=== PATIENT | female | born 1955 | race Caucasian/White ===

== ENCOUNTER → 2016-04-13 | Outpatient (CLI) | payer BC, OTHER ==
[~2016-04-13] MED LIST: BACT800T5 PO; CLAR10CA3 PO; LEVO150T7 PO; LISI-538 PO; LORT5TAB PO; POTA99TA PO; VITA200015 PO; antibiotic; iron OR; multivitamin OR
--- NOTE | 2016-04-14 10:24 | RADONC ---
RADIATION ONCOLOGY FOLLOWUP NOTE: DATE: 04/13/2016 DIAGNOSIS: Left breast cancer. STAGE: IIIB, [id number] ECOG PERFORMANCE STATUS: 0 Ms. Colvin is a very pleasant 60-year-old white female with the diagnosis of a stage III B, [id number] inflammatory breast carcinoma who is presenting to us today for routine followup visit 8 months post completion of external beam radiation therapy. The patient presents today reporting that she is doing quite well with no complaints at this time related to her radiation therapy or disease. She has no chest wall pain or bone pain. REVIEW OF SYSTEMS: The patient's review of systems is noncontributory. Denies nausea, vomiting, fevers, chills, night sweats, diplopia, headaches, anxiety or depression, anorexia, weight loss, visual disturbances, chest pain, urinary or bowel difficulties, bone pain, or neurological problems. PHYSICAL EXAMINATION: The patient is a well-developed, well-nourished female in no acute distress. HEENT exam is normocephalic, atraumatic. Extraocular movements are intact. There is no palpable cervical, supraclavicular, infraclavicular, axillary, or inguinal lymphadenopathy present. Lungs are clear to auscultation and percussion. Heart has a regular rate and rhythm. Abdomen is benign with no hepatosplenomegaly, masses, or tenderness. Breast examination: The patient's bilateral chest wall show a well healed surgical scar is present from her bilateral mastectomies, but no evidence of nodularity or recurrent disease. Skeletal examination reveals no tenderness to pressure or percussion of the bony skeleton. Extremities reveal no clubbing, cyanosis, or edema. Neurologic exam is grossly intact, as is the remainder of the physical examination. ASSESSMENT: The patient is clinically stable at this time and will be seen by us again in 6 months for further followup. She will also continue to be followed by her other physicians in the meantime. cc: Jessie Krause MD
== END ==
LOC: M ONCR 14:00
PROVIDERS: ATTEND Radiology Radiation Oncology
DX: C50.312 Malignant neoplasm of lower-inner quadrant of left female breast (principal)

== ENCOUNTER → 2016-04-15 | Outpatient (CLI) | payer BC, OTHER ==
[2016-04-15 09:34] LABS: ALBUMIN 3.9 GM/DL (3.2-5.2); ALBUMIN/GLOBULIN RATIO 1.05 (1.00-1.93); ALKALINE PHOSPHATASE 120 U/L (45-117); ALT/SGPT 55 U/L (12-78); ANION GAP 10 MEQ/L (8-16); AST/SGOT 26 U/L (15-37); BILIRUBIN,TOTAL 0.5 MG/DL (0.2-1.0); BLOOD UREA NITROGEN 13 MG/DL (7-18); CALCIUM LEVEL 9.4 MG/DL (8.8-10.2); CARBON DIOXIDE LEVEL 29 MEQ/L (21-32); CHLORIDE LEVEL 103 MEQ/L (98-107); CHOLESTEROL LEVEL 200 MG/DL (<200); CREATININE FOR GFR 0.83 MG/DL (0.55-1.02); GLOMERULAR FILTRATION RATE > 60.0 (>45); GLUCOSE, FASTING 154 MG/DL (80-110); POTASSIUM SERUM 4.5 MEQ/L (3.5-5.1); SODIUM LEVEL 142 MEQ/L (136-145); TOTAL PROTEIN 7.6 GM/DL (6.4-8.2); TRIGLYCERIDES LEVEL 206 MG/DL (<150)
== END ==
LOC: M LAB 08:11
PROVIDERS: ATTEND Physician Assistant
DX: Z13.1 Encounter for screening for diabetes mellitus (principal)

== ENCOUNTER → 2016-04-20 | Outpatient (CLI) | payer BC, OTHER ==
--- NOTE | 2016-04-21 06:36 | ECHO ---
DATE OF PROCEDURE: 04/20/2016 DATE OF : 1955 AGE: 60 REASON FOR ECHOCARDIOGRAM: Shortness of breath. History of breast cancer and status post chemotherapy. 2D MEASUREMENTS: IVS: 1.3 cm LV: 3.9 cm LVPW: 1.3 cm LA: 3.7 cm Aorta: 3.2 cm IVC: 2.1 cm DOPPLER MEASUREMENTS: Peak velocity across the aortic valve: 0.82 m/s Peak velocity across the LVOT: 0.55 m/s Mitral E: 1.0 Mitral A: 0.52 Ratio 2.0 2D COMMENTS: 1. Technically limited study due to poor acoustic window secondary to lung interference. 2. The left ventricular size is normal with mildly increased left ventricular wall thickness and a normal global left ventricular systolic function noted in limited views. The estimated global left ventricular systolic ejection fraction is about 60%. 3. Normal left atrium. Normal right atrium and right ventricle. 4. The atrial septum appeared to be normal without evidence of defect or shunt. 5. Normal aortic root. 6. No pericardial effusion noted in limited views. 7. The aortic valve, mitral valve and tricuspid valve appeared to be normal. The proximal pulmonary artery branches were not well visualized. 8. The inferior vena cava was mildly enlarged, central venous pressure mildly elevated. DOPPLER: Once trace mild regurgitation detected. IMPRESSION: 1. Technically limited study due to poor acoustic window. 2. Probably normal global left ventricular systolic function. Not mentioned above, abnormal relaxation pattern was noted across the mitral valve annulus consistent with pseudonormal pattern. Left ventricular and diastolic pressure mildly elevated. 3. There are findings consistent with elevated central venous pressure, the inferior vena cava was mildly enlarged. 4. Patient during the test was in mild sinus tachycardia, had a heart that varied between 100-110 beats per minute. 5. This was compared to the last echocardiogram on 12/19/2014. That study was good quality and left ventricular systolic function was essentially normal. There were no echocardiographic findings that would explain sinus tachycardia, this may need to be investigated and if needed, a MUGE can be ordered in order to reassess the LVEF. Please do not hesitate to call if any question.
== END ==
LOC: M CARPUL 12:20
PROVIDERS: ATTEND Internal Medicine Medical Oncology
DX: R06.02 Shortness of breath (principal); C50.919 Malignant neoplasm of unspecified site of unspecified female breast

== ENCOUNTER → 2016-04-25 | Outpatient (CLI) | payer BC ==
[~2016-04-25] MED LIST changes: +LIDOCAINE W/EPINEPHRINE 1% 20ML VIAL As Ordered ONE; +SODIUM BICARBONATE 8.4% INJ 50MEQ 50 ML VIAL As Ordered ONE
--- NOTE | 2016-04-25 14:19 | REPKIM ---
CLINICAL HISTORY: Patient has a right IJ chest [id number]. The referring service has requested to remove the chest port because it is no longer needed. PROCEDURE PERFORMED: Chest Uhnang-f-mjva Removal INTERVENTIONALIST: Moni Guardado MD MEDICATIONS: Local Lidocaine EBL: less than 5 mL CONSENT: The risks, benefits and alternatives to the procedure were explained to the patient and informed written consent was obtained. PROCEDURE/FINDINGS: The patient was brought to the interventional radiology suite and was positioned supine on the table. Time out procedure was performed. The pre-procedure chest fluoroscopy showed the catheter is intact in a satisfactory course with its tip at the cavoatrial junction. The right upper chest was prepped and draped in the usual sterile fashion. Local anesthesia was administered to the overlying skin and surrounding deep tissue around the existing port. Then a skin incision was made. The port was bluntly dissected free from the surrounding soft tissues. The catheter was removed, inspected and confirmed to be removed in its entirety. The deep tissue was closed with interrupted 2-0 Vicryl suture. The skin incision closed with running subcutaneous 4-0 Vicryl suture and steristrips. The patient tolerated the procedure well with no immediate complications. This procedure was performed with fluoroscopic guidance. Dr. Guardado was present. IMPRESSION: Successful chest pihigl-y-ksnq removal as discussed above. cc: Jessie Krause MD [facility] HEALTH SERVICESLetty
== END | disposition home or self-care (01) ==
LOC: M IRPRO 09:15
PROVIDERS: ATTEND Internal Medicine Medical Oncology
DX: Z45.2 Encounter for adjustment and management of vascular access device (principal); C50.919 Malignant neoplasm of unspecified site of unspecified female breast

== ENCOUNTER → 2016-05-11 | Outpatient (CLI) | payer BC, OTHER ==
[~2016-05-11] VITALS: Ht 170.2 cm; Wt 106.2 kg
[~2016-05-11] MED LIST changes: +ASPI1TAB PO; +EXEM25TA PO; +GABA-279 PO; +HYDR10T PO; +LIDOCAINE 2% INJ 100 MG/5 ML SDV (FOR ANES.) As Ordered ONE; -LIDOCAINE W/EPINEPHRINE 1% 20ML VIAL As Ordered ONE; +LISI-542 PO; +NS 1,000 ML IV SCH; +PROPOFOL 200 MG/20 ML VIAL As Ordered ONE; -SODIUM BICARBONATE 8.4% INJ 50MEQ 50 ML VIAL As Ordered ONE; +ZYRT10CA PO
--- NOTE | 2016-05-11 09:03 | ROOR ---
Patient Name: Rupali Colvin Procedure Date: 05/11/2016 8:34 AM Date of : 1955 Age: 61 Room: [facility] Gender: Female Note Status: Finalized Procedure: Colonoscopy to Cecum Indications: High risk colon cancer surveillance: Personal history of colonic polyps, Last colonoscopy: 2013 Providers: Geoff Rosales MD Referring MD: Antonia OLIVAREZ DO Requesting Provider: Medicines: Monitored Anesthesia Care Complications: No immediate complications. Procedure: Pre-Anesthesia Assessment: - The heart rate, respiratory rate, oxygen saturations, blood pressure, adequacy of pulmonary ventilation, and response to care were monitored throughout the procedure. The Colonoscope was introduced through the anus and advanced to the cecum, identified by appendiceal orifice and ileocecal valve. The colonoscopy was performed without difficulty. The patient tolerated the procedure well. The quality of the bowel preparation was fair. Findings: The perianal and digital rectal examinations were normal. Non-bleeding internal hemorrhoids were found during retroflexion. The hemorrhoids were small and Grade I (internal hemorrhoids that do not prolapse). No other significant abnormalities were identified in a careful examination of the remainder of the colon. The exam was otherwise without abnormality on direct and retroflexion views. Impression: - Preparation of the colon was fair. - Non-bleeding internal hemorrhoids. - The examination was otherwise normal on direct and retroflexion views. - No specimens collected. - The exam was otherwise normal to the cecum. Recommendation: - Patient has a contact number available for emergencies. The signs and symptoms of potential delayed complications were discussed with the patient. Return to normal activities tomorrow. Written discharge instructions were provided to the patient. - High fiber diet. - Discharge patient to home. - Continue present medications. - Repeat colonoscopy in 5 years for surveillance. - Return to referring physician. - The findings and recommendations were discussed with the patient's family. Geoff Rosales MD Geoff Rosales MD 05/11/2016 9:03:22 AM This report has been signed electronically. Number of Addenda: 0 Note Initiated On: 05/11/2016 8:34 AM Estimated Blood Loss: Estimated blood loss: none.
[2016-05-11 09:20] VITALS: BP 137/69
== END | disposition home or self-care (01) ==
LOC: M OPP 07:29
PROVIDERS: ATTEND Internal Medicine Gastroenterology
DX: Z12.11 Encounter for screening for malignant neoplasm of colon (principal); Z86.010 Personal history of colon polyps; K64.0 First degree hemorrhoids; K82.9 Disease of gallbladder, unspecified; E03.9 Hypothyroidism, unspecified; E11.9 Type 2 diabetes mellitus without complications; I10 Essential (primary) hypertension; G47.30 Sleep apnea, unspecified; Z88.0 Allergy status to penicillin; Z88.2 Allergy status to sulfonamides; Z79.899 Other long term (current) drug therapy; Z79.82 Long term (current) use of aspirin
CPT/HCPCS: 99156; 99157; G0105

== ENCOUNTER → 2016-07-18 | Outpatient (CLI) | payer BC, OTHER ==
[~2016-07-18] MED LIST changes: -LIDOCAINE 2% INJ 100 MG/5 ML SDV (FOR ANES.) As Ordered ONE; -NS 1,000 ML IV SCH; -PROPOFOL 200 MG/20 ML VIAL As Ordered ONE
[2016-07-18 09:35] LABS: ALBUMIN 3.9 GM/DL (3.2-5.2); ALBUMIN/GLOBULIN RATIO 0.95 (1.00-1.93); ALKALINE PHOSPHATASE 122 U/L (45-117); ALT/SGPT 39 U/L (12-78); ANION GAP 7 MEQ/L (8-16); AST/SGOT 18 U/L (15-37); BILIRUBIN,TOTAL 0.5 MG/DL (0.2-1.0); BLOOD UREA NITROGEN 10 MG/DL (7-18); CALCIUM LEVEL 8.9 MG/DL (8.8-10.2); CARBON DIOXIDE LEVEL 29 MEQ/L (21-32); CHLORIDE LEVEL 102 MEQ/L (98-107); CREATININE FOR GFR 0.93 MG/DL (0.55-1.02); FREE T4 1.17 NG/DL (0.76-1.46); GLOMERULAR FILTRATION RATE > 60.0 (>45); GLUCOSE, FASTING 151 MG/DL (80-110); POTASSIUM SERUM 4.1 MEQ/L (3.5-5.1); SODIUM LEVEL 138 MEQ/L (136-145)
== END ==
LOC: M LAB 08:24
PROVIDERS: ATTEND Family Medicine
DX: E89.0 Postprocedural hypothyroidism (principal); E11.9 Type 2 diabetes mellitus without complications

== ENCOUNTER → 2016-10-05 | Outpatient (CLI) | payer BC, OTHER ==
[~2016-10-05] MED LIST changes: +HYDR-643 PO; -HYDR10T PO
--- NOTE | 2016-10-05 13:59 | RADONC ---
RADIATION ONCOLOGY FOLLOWUP NOTE DATE: 10/05/2016 CHART NUMBER: [id number] DIAGNOSIS: Left breast cancer. STAGE: IIIB, [id number]. ECOG PERFORMANCE STATUS: 0. FOLLOWUP NOTE: Ms. Colvin is a very pleasant plus 61-year-old white female with the diagnosis of a stage IIIB, [id number] inflammatory breast carcinoma who is presenting to us today for routine followup visit 1 year and 2 months post completion of external beam radiation therapy. The patient presents today reporting that she is doing quite well with no complaints at this time related to her radiation therapy or disease. She has no breast or bone pain. The patient's review of systems is noncontributory. She denies nausea, vomiting, fevers, chills, night sweats, diplopia, headaches, anxiety or depression, anorexia, weight loss, visual disturbances, chest pain, urinary or bowel difficulties, bone pain, or neurological problems. PHYSICAL EXAMINATION: The patient is a well-developed, well-nourished, female in no acute distress. HEENT exam is normocephalic, atraumatic. Extraocular movements are intact. There is no palpable cervical, supraclavicular, infraclavicular, axillary, or inguinal lymphadenopathy present. Lungs are clear to auscultation and percussion. Heart has a regular rate and rhythm. Abdomen is benign with no hepatosplenomegaly, masses, or tenderness. Chest wall examination reveals bilateral mastectomy scars which are well healed. There is no evidence of nodularity, ulceration, residual, or recurrent disease. Skeletal examination reveals no tenderness to pressure or percussion of the bony skeleton. Extremities reveal no clubbing, cyanosis, or edema. Neurologic exam is grossly intact, as is the remainder of the physical examination. ASSESSMENT: The patient is clinically needy at this time and will be seen by us again in 6 months for further followup. She will also continue to be followed by her other physicians as well. cc: Jessie Krause MD, FACP Antonia Sharp DO
== END ==
LOC: M ONCR 12:57
PROVIDERS: ATTEND Radiology Radiation Oncology
DX: C50.312 Malignant neoplasm of lower-inner quadrant of left female breast (principal)

== ENCOUNTER → 2016-10-20 | Outpatient (CLI) | payer BC, OTHER ==
[2016-10-20 08:25] LABS: ALBUMIN 4.1 GM/DL (3.2-5.2); ALBUMIN/GLOBULIN RATIO 1.03 (1.00-1.93); ALKALINE PHOSPHATASE 110 U/L (45-117); ALT/SGPT 33 U/L (12-78); ANION GAP 11 MEQ/L (8-16); AST/SGOT 13 U/L (15-37); BILIRUBIN,TOTAL 0.6 MG/DL (0.2-1.0); BLOOD UREA NITROGEN 12 MG/DL (7-18); CALCIUM LEVEL 10.2 MG/DL (8.8-10.2); CARBON DIOXIDE LEVEL 25 MEQ/L (21-32); CHLORIDE LEVEL 104 MEQ/L (98-107); CHOLESTEROL LEVEL 99 MG/DL (<200); CREATININE FOR GFR 0.86 MG/DL (0.55-1.02); GLOMERULAR FILTRATION RATE > 60.0 (>45); GLUCOSE, FASTING 147 MG/DL (80-110); POTASSIUM SERUM 4.3 MEQ/L (3.5-5.1); SODIUM LEVEL 140 MEQ/L (136-145); TOTAL PROTEIN 8.1 GM/DL (6.4-8.2); TRIGLYCERIDES LEVEL 127 MG/DL (<150)
== END ==
LOC: M LAB 06:58
PROVIDERS: ATTEND Family Medicine
DX: E78.00 Pure hypercholesterolemia, unspecified (principal); E11.9 Type 2 diabetes mellitus without complications; E89.0 Postprocedural hypothyroidism

== ENCOUNTER → 2016-12-19 | Outpatient (CLI) | payer BC, OTHER ==
--- NOTE | 2016-12-19 13:47 | REP ---
Whole body radionuclide bone scan: Whole-body scanning is performed. Additionally oblique views of the ribs and pelvis are performed and lateral views of the calvarium are performed. There is a degenerative pattern of uptake in the shoulders. No rib or spine. Uptake is identified. No pelvic uptake is identified. There is uptake in the knees bilaterally, likely degenerative. However, correlation with plain films might be considered. There is a degenerative pattern of uptake in the ankles and feet bilaterally. Impression: There is uptake in the joints of the shoulders, knees, ankles and feet. This is likely degenerative uptake. The uptake pattern is otherwise unremarkable. The study is performed with 21.9 mCi of technetium 99m MDP. Signed by Diony Neumann MD 12/19/2016 01:38 P
== END ==
LOC: M RAD 09:27
PROVIDERS: ATTEND Internal Medicine Medical Oncology
DX: M25.511 Pain in right shoulder (principal); M25.512 Pain in left shoulder; C50.919 Malignant neoplasm of unspecified site of unspecified female breast
CPT/HCPCS: 78306; A9503

== ENCOUNTER 2017-01-19 12:19 | Outpatient (RCR) | payer BC, OTHER | END 2017-02-16 | LOC: M PT 12:19 | PROVIDERS: ATTEND Internal Medicine Medical Oncology | DX: Z51.89 Encounter for other specified aftercare (principal); I89.0 Lymphedema, not elsewhere classified; C50.919 Malignant neoplasm of unspecified site of unspecified female breast ==

== ENCOUNTER → 2017-03-29 | Outpatient (CLI) | payer BC, OTHER | LOC: M ONCR 13:22 | DX: Z08 Encounter for follow-up examination after completed treatment for malignant neoplasm (principal); Z85.3 Personal history of malignant neoplasm of breast; Z90.13 Acquired absence of bilateral breasts and nipples | CPT/HCPCS: G0463 ==

== ENCOUNTER → 2017-04-25 | Outpatient (CLI) | payer BC, OTHER, MEDICARE ==
[2017-04-25 09:13] LABS: ESTIMATED AVERAGE GLUCOSE 154 MG/DL (60-110)
[2017-04-25 09:22] LABS: ANION GAP 8 MEQ/L (8-16); BLOOD UREA NITROGEN 13 MG/DL (7-18); CALCIUM LEVEL 9.5 MG/DL (8.8-10.2); CARBON DIOXIDE LEVEL 28 MEQ/L (21-32); CHLORIDE LEVEL 103 MEQ/L (98-107); CREATININE FOR GFR 0.84 MG/DL (0.55-1.30); FREE T4 1.38 NG/DL (0.76-1.46); GLOMERULAR FILTRATION RATE > 60.0 (>45); GLUCOSE, FASTING 139 MG/DL (70-100); POTASSIUM SERUM 4.2 MEQ/L (3.5-5.1); SODIUM LEVEL 139 MEQ/L (136-145); THYROID STIMULATING HORMONE 0.417 uIU/ML (0.358-3.740)
== END ==
LOC: M LAB 08:10
DX: E11.9 Type 2 diabetes mellitus without complications (principal); E89.0 Postprocedural hypothyroidism
CPT/HCPCS: 84443

== ENCOUNTER → 2017-09-28 | Outpatient (CLI) | payer MEDICARE, BC, OTHER ==
[~2017-09-28] MED LIST changes: -ASPI1TAB PO; -BACT800T5 PO; -CLAR10CA3 PO; -EXEM25TA PO; -GABA-279 PO; -HYDR-643 PO; +ISOVUE-370 76% 100ML VIAL (Q9967) As Ordered; -LEVO150T7 PO; -LISI-538 PO; -LISI-542 PO; -LORT5TAB PO; -POTA99TA PO; -VITA200015 PO; -ZYRT10CA PO; -antibiotic; -iron OR; -multivitamin OR
== END ==
LOC: M RAD 13:17
DX: C50.312 Malignant neoplasm of lower-inner quadrant of left female breast (principal); R07.2 Precordial pain
CPT/HCPCS: Q9967

== ENCOUNTER 2017-10-25 10:13 | Day surgery (SDC) | payer MEDICARE, BC, OTHER ==
[~2017-10-25 10:13] MED LIST changes: +CYCLOPENTOLATE 2% OPHTH SOLN 2ML BTL OS; -ISOVUE-370 76% 100ML VIAL (Q9967) As Ordered; +LIDOCAINE 3.5 % 1ML OPHTH TOPICAL GEL OU; +OFLOXACIN 0.3 % (OCUFLOX) OPTH SOL 5ML OS; +PHENYLEPHRINE 2.5% OPHTH SOL 2ML OS; +PHENYLEPHRINE HCL 10 % OPHTH. SOL 5ML OS; +TROPICAMIDE 1% OPHTH SOLN 2ML OS
[2017-10-25 11:42] LABS: BEDSIDE GLUCOSE 152 MG/DL (80-115)
[2017-10-25] MEDS: POVIDONE-IODINE 5% OPHTH PREP SOL 30ML As Ordered ×2 (12:30)
[2017-10-25] MEDS: CEFUROXIME 1MG/0.1ML INTRACAMERAL INJ As Ordered ×2 (12:37)
[2017-10-25] MEDS: HEALON DUET (HEALON 10MG/ML 0.55ML & HEALON ENDOCOAT 30MG/ML 0.85ML) As Ordered ×2 (12:37)
[2017-10-25] MEDS: LIDOCAINE 1% SDV 5 ML VIAL As Ordered ×2 (12:37)
[2017-10-25] MEDS: BALANCED SALT IRRIGATION SOLUTION 500ML BAG (FOR OR EYE MACHINE) As Ordered ×2 (12:37)
[2017-10-25] MEDS ORDERED: fentaNYL 100 MCG/2 ML INJECTION (J3010) As Ordered ×2 (12:43)
[2017-10-25] MEDS ORDERED: MIDAZOLAM INJ 2 MG/2 ML VIAL (J2250) As Ordered ×2 (12:43)
[2017-10-25] MEDS: ACETYLCHOLINE OPHTH SOLN 1% 2ML (MIOCHOL-E) As Ordered ×2 (12:50)
== END 2017-10-25 13:38 | disposition home or self-care (01) ==
LOC: M SDC 10:13
DX: H25.12 Age-related nuclear cataract, left eye (principal); I10 Essential (primary) hypertension; E78.5 Hyperlipidemia, unspecified; E11.9 Type 2 diabetes mellitus without complications; Z88.0 Allergy status to penicillin; Z88.2 Allergy status to sulfonamides; E03.9 Hypothyroidism, unspecified; Z79.82 Long term (current) use of aspirin; Z79.899 Other long term (current) drug therapy
CPT/HCPCS: 66984

== ENCOUNTER → 2017-10-25 | Outpatient (CLI) | payer MEDICARE, BC, OTHER ==
[2017-10-25 10:46] LABS: ANION GAP 7 MEQ/L (8-16); BLOOD UREA NITROGEN 13 MG/DL (7-18); CALCIUM LEVEL 9.4 MG/DL (8.8-10.2); CARBON DIOXIDE LEVEL 29 MEQ/L (21-32); CHLORIDE LEVEL 106 MEQ/L (98-107); CREATININE FOR GFR 0.76 MG/DL (0.55-1.30); GLOMERULAR FILTRATION RATE > 60.0 (>45); GLUCOSE, FASTING 156 MG/DL (70-100); POTASSIUM SERUM 4.5 MEQ/L (3.5-5.1); SODIUM LEVEL 142 MEQ/L (136-145)
[2017-10-25 12:24] LABS: ESTIMATED AVERAGE GLUCOSE 143 MG/DL (60-110); HEMOGLOBIN A1c 6.6 %
== END ==
LOC: M LAB 09:31
DX: E11.9 Type 2 diabetes mellitus without complications (principal)

== ENCOUNTER 2017-11-01 07:52 | Day surgery (SDC) | payer MEDICARE, BC, OTHER ==
[2017-11-01] MEDS: CEFUROXIME 1MG/0.1ML INTRACAMERAL INJ As Ordered ×2 (07:05)
[~2017-11-01 07:52] MED LIST changes: +ACETAMINOPHEN 325 MG TAB PO; -CYCLOPENTOLATE 2% OPHTH SOLN 2ML BTL OS; -LIDOCAINE 3.5 % 1ML OPHTH TOPICAL GEL OU; -OFLOXACIN 0.3 % (OCUFLOX) OPTH SOL 5ML OS; -PHENYLEPHRINE 2.5% OPHTH SOL 2ML OS; +PHENYLEPHRINE HCL 10 % OPHTH. SOL 5ML OD; -PHENYLEPHRINE HCL 10 % OPHTH. SOL 5ML OS; +PROPARACAINE 0.5% OPHTH SOL 15ML OD; -TROPICAMIDE 1% OPHTH SOLN 2ML OS
[2017-11-01] MEDS ORDERED: TROPICAMIDE 1% OPHTH SOLN 2ML As Ordered ×2 (08:14)
[2017-11-01] MEDS ORDERED: PHENYLEPHRINE 2.5% OPHTH SOL 2ML As Ordered ×2 (08:14)
[2017-11-01] MEDS ORDERED: OFLOXACIN 0.3 % (OCUFLOX) OPTH SOL 5ML As Ordered ×2 (08:14)
[2017-11-01] MEDS ORDERED: CYCLOPENTOLATE 2% OPHTH SOLN 2ML BTL As Ordered ×2 (08:14)
[2017-11-01] MEDS: POVIDONE-IODINE 5% OPHTH PREP SOL 30ML As Ordered ×2 (08:24)
[2017-11-01] MEDS: PHENYLEPHRINE 2.5% OPHTH SOL 2ML OD ×2 (08:45)
[2017-11-01] MEDS: TROPICAMIDE 1% OPHTH SOLN 2ML OD ×2 (08:45)
[2017-11-01] MEDS: CYCLOPENTOLATE 2% OPHTH SOLN 2ML BTL OD ×2 (08:46)
[2017-11-01] MEDS: LIDOCAINE 3.5 % 1ML OPHTH TOPICAL GEL OU ×2 (08:46)
[2017-11-01] MEDS: OFLOXACIN 0.3 % (OCUFLOX) OPTH SOL 5ML OD ×2 (08:46)
[2017-11-01] MEDS ORDERED: MIDAZOLAM INJ 2 MG/2 ML VIAL (J2250) As Ordered ×2 (09:56)
[2017-11-01] MEDS ORDERED: fentaNYL 100 MCG/2 ML INJECTION (J3010) As Ordered ×2 (09:57)
[2017-11-01] MEDS: LIDOCAINE 1% SDV 5 ML VIAL As Ordered ×2 (10:29)
[2017-11-01] MEDS: HEALON DUET (HEALON 10MG/ML 0.55ML & HEALON ENDOCOAT 30MG/ML 0.85ML) As Ordered ×2 (10:31)
[2017-11-01] MEDS: BALANCED SALT IRRIGATION SOLUTION 500ML BAG (FOR OR EYE MACHINE) As Ordered ×2 (10:31)
[2017-11-01] MEDS: ACETYLCHOLINE OPHTH SOLN 1% 2ML (MIOCHOL-E) As Ordered ×2 (10:37)
[2017-11-01] MEDS: KETOROLAC 0.5% OPHTH SOLN OD ×2 (11:08)
[2017-11-01] MEDS ORDERED: TRIMETHOBENZAMIDE 300 MG CAP PO ×2 (11:15)
== END 2017-11-01 11:20 | disposition home or self-care (01) ==
LOC: M SDC 07:52
DX: H25.11 Age-related nuclear cataract, right eye (principal); E03.9 Hypothyroidism, unspecified; I10 Essential (primary) hypertension; E78.5 Hyperlipidemia, unspecified; Z88.0 Allergy status to penicillin; Z88.2 Allergy status to sulfonamides; Z85.3 Personal history of malignant neoplasm of breast; Z92.21 Personal history of antineoplastic chemotherapy; Z92.3 Personal history of irradiation; Z79.82 Long term (current) use of aspirin
CPT/HCPCS: 66984

== ENCOUNTER → 2017-12-27 | Outpatient (CLI) | payer MEDICARE, BC, OTHER | LOC: M ONCR 09:38 | DX: C50.912 Malignant neoplasm of unspecified site of left female breast (principal) | CPT/HCPCS: G0463 ==

== ENCOUNTER → 2018-01-23 | Outpatient (CLI) | payer MEDICARE, BC, OTHER ==
[2018-01-23 10:36] LABS: ALBUMIN 3.9 GM/DL (3.2-5.2); ALBUMIN/GLOBULIN RATIO 1.05 (1.00-1.93); ALKALINE PHOSPHATASE 106 U/L (45-117); ALT/SGPT 31 U/L (12-78); ANION GAP 9 MEQ/L (8-16); AST/SGOT 11 U/L (7-37); BILIRUBIN,TOTAL 0.4 MG/DL (0.2-1.0); BLOOD UREA NITROGEN 12 MG/DL (7-18); CALCIUM LEVEL 9.6 MG/DL (8.8-10.2); CARBON DIOXIDE LEVEL 27 MEQ/L (21-32); CHLORIDE LEVEL 104 MEQ/L (98-107); CHOLESTEROL LEVEL 115 MG/DL (<200); CHOLESTEROL RISK RATIO 2.555 (<5); FREE T4 1.41 NG/DL (0.76-1.46); GLOMERULAR FILTRATION RATE > 60.0 (>45); GLUCOSE, FASTING 164 MG/DL (70-100); HDL CHOLESTEROL 45 MG/DL (>40); LDL CHOLESTEROL 38 MG/DL (<100); NON-HDL-C 70 MG/DL; POTASSIUM SERUM 4.4 MEQ/L (3.5-5.1); SODIUM LEVEL 140 MEQ/L (136-145); THYROID STIMULATING HORMONE 0.652 uIU/ML (0.358-3.740); TOTAL PROTEIN 7.6 GM/DL (6.4-8.2); TRIGLYCERIDES LEVEL 161 MG/DL (<150)
[2018-01-23 10:43] LABS: ESTIMATED AVERAGE GLUCOSE 154 MG/DL (60-110)
== END ==
LOC: M LAB 08:49
DX: Z00.00 Encounter for general adult medical examination without abnormal findings (principal); E11.9 Type 2 diabetes mellitus without complications; E78.00 Pure hypercholesterolemia, unspecified
CPT/HCPCS: 84443

== ENCOUNTER → 2018-05-02 | Outpatient (CLI) | payer MEDICARE, BC, OTHER ==
[~2018-05-02] MED LIST changes: -ACETAMINOPHEN 325 MG TAB PO; +ANAS1TAB2 PO; +ASPI1TAB PO; +ATOR40TA75 PO; +BACT800T5 PO; +CALC500T49 PO; +CINN500T PO; +CLAR10CA3 PO; +EXEM25TA PO; +GABA-1171 PO; +HYDR-643 PO; +INVO100T PO; +LEVO137T2 PO; +LEVO150T7 PO; +LISI-538 PO; +LISI-542 PO; +LORT5TAB PO; +METF500T4 PO; +MULT1TAB10 PO; -PHENYLEPHRINE HCL 10 % OPHTH. SOL 5ML OD; +POTA99TA PO; -PROPARACAINE 0.5% OPHTH SOL 15ML OD; +VITA200015 PO; +ZOLO50TA PO; +ZYRT10CA PO; +antibiotic; +iron OR; +multivitamin OR
[2018-05-02 09:05] LABS: BASO # 0.1 10^3/uL (0.0-0.2); BASO % 1.4 % (0.0-1.0); EOS # 0.2 10^3/uL (0.0-0.50); EOS % 3.2 % (0.0-3.0); HEMATOCRIT 44.1 % (36.0-47.0); HEMOGLOBIN 14.8 g/dl (12.0-15.5); LYMPH # 1.4 10^3/uL (1.5-4.5); LYMPH % 25.1 % (24.0-44.0); MEAN CORPUSCULAR HEMOGLOBIN 29.6 pg (27.0-33.0); MEAN CORPUSCULAR HGB CONC 33.6 g/dl (32.0-36.5); MEAN CORPUSCULAR VOLUME 88.2 fl (80.0-96.0); MONO # 0.4 10^3/uL (0.0-0.8); MONO % 7.2 % (0.0-5.0); NEUTROPHILS # 3.5 10^3/uL (1.8-7.7); NEUTROPHILS % 62.9 % (36.0-66.0); PLATELET COUNT, AUTOMATED 181 10^3/uL (150-450); WHITE BLOOD COUNT 5.6 10^3/uL (4.0-10.0)
[2018-05-02 09:30] LABS: ALT/SGPT 30 U/L (12-78); BILIRUBIN,TOTAL 0.4 MG/DL (0.2-1.0); BLOOD UREA NITROGEN 15 MG/DL (7-18); CALCIUM LEVEL 9.2 MG/DL (8.8-10.2); CARBON DIOXIDE LEVEL 27 MEQ/L (21-32); CHLORIDE LEVEL 104 MEQ/L (98-107); CREATININE FOR GFR 0.77 MG/DL (0.55-1.30); GLOMERULAR FILTRATION RATE > 60.0 (>45); GLUCOSE, FASTING 140 MG/DL (70-100); POTASSIUM SERUM 4.6 MEQ/L (3.5-5.1); SODIUM LEVEL 139 MEQ/L (136-145); TOTAL PROTEIN 7.5 GM/DL (6.4-8.2)
[2018-05-02 09:41] LABS: CREATININE, URINE 49.4 MG/DL; MALB URINE SIEMENS < 5.0 MG/L; MAU/CREAT RATIO 10.1 MCG/MG (0.0-30.0)
[2018-05-02 09:52] LABS: TOTAL 25(OH) VITAMIN D 33.9 NG/ML (30.0-100.0)
[2018-05-02 09:53] LABS: HEMOGLOBIN A1c 7.1 %
== END ==
LOC: M LAB 08:14
PROVIDERS: ATTEND Family Medicine
DX: E11.9 Type 2 diabetes mellitus without complications (principal); Z85.3 Personal history of malignant neoplasm of breast

== ENCOUNTER → 2018-07-26 | Outpatient (CLI) | payer MEDICARE, BC, OTHER ==
[~2018-07-26] MED LIST changes: -ASPI1TAB PO; +ASPI81TA26 PO
[2018-07-26 10:38] LABS: BLOOD UREA NITROGEN 14 MG/DL (7-18); CALCIUM LEVEL 9.2 MG/DL (8.8-10.2); CARBON DIOXIDE LEVEL 28 MEQ/L (21-32); CHLORIDE LEVEL 104 MEQ/L (98-107); CHOLESTEROL LEVEL 118 MG/DL (<200); CHOLESTEROL RISK RATIO 2.458 (<5); CREATININE FOR GFR 0.79 MG/DL (0.55-1.30); FREE T4 1.28 NG/DL (0.76-1.46); GLOMERULAR FILTRATION RATE > 60.0 (>45); GLUCOSE, FASTING 142 MG/DL (70-100); HDL CHOLESTEROL 48 MG/DL (>40); LDL CHOLESTEROL 48 MG/DL (<100); NON-HDL-C 70 MG/DL; POTASSIUM SERUM 4.5 MEQ/L (3.5-5.1); SODIUM LEVEL 139 MEQ/L (136-145); TRIGLYCERIDES LEVEL 111 MG/DL (<150)
[2018-07-26 11:03] LABS: HEMOGLOBIN A1c 6.9 %
== END ==
LOC: M LAB 08:17
PROVIDERS: ATTEND Physician Assistant
DX: E11.9 Type 2 diabetes mellitus without complications (principal); E89.0 Postprocedural hypothyroidism

== ENCOUNTER → 2018-10-31 | Outpatient (CLI) | payer MEDICARE, BC, OTHER ==
[2018-10-31 08:38] LABS: BLOOD UREA NITROGEN 11 MG/DL (7-18); CALCIUM LEVEL 9.1 MG/DL (8.8-10.2); CARBON DIOXIDE LEVEL 27 MEQ/L (21-32); CHLORIDE LEVEL 103 MEQ/L (98-107); CHOLESTEROL LEVEL 114 MG/DL (<200); FREE T4 1.21 NG/DL (0.76-1.46); GLOMERULAR FILTRATION RATE > 60.0 (>45); GLUCOSE, FASTING 148 MG/DL (70-100); HDL CHOLESTEROL 50 MG/DL (>40); LDL CHOLESTEROL 39 MG/DL (<100); NON-HDL-C 64 MG/DL; POTASSIUM SERUM 4.6 MEQ/L (3.5-5.1); SODIUM LEVEL 140 MEQ/L (136-145); TRIGLYCERIDES LEVEL 123 MG/DL (<150)
[2018-10-31 08:47] LABS: HEMOGLOBIN A1c 7.6 %
== END ==
LOC: M LAB 07:26
PROVIDERS: ATTEND Physician Assistant
DX: E11.9 Type 2 diabetes mellitus without complications (principal)

== ENCOUNTER → 2019-02-12 | Outpatient (CLI) | payer MEDICARE, BC, OTHER ==
[~2019-02-12] MED LIST changes: +BENA25CA4 PO; +GLIM2TAB2 PO; +METF-791 PO; -METF500T4 PO
[2019-02-12 08:53] LABS: HEMOGLOBIN A1c 6.3 %
[2019-02-12 09:00] LABS: BLOOD UREA NITROGEN 15 MG/DL (7-18); CALCIUM LEVEL 9.1 MG/DL (8.8-10.2); CARBON DIOXIDE LEVEL 26 MEQ/L (21-32); CHLORIDE LEVEL 107 MEQ/L (98-107); CREATININE FOR GFR 0.86 MG/DL (0.55-1.30); GLOMERULAR FILTRATION RATE > 60.0 (>45); GLUCOSE, FASTING 118 MG/DL (70-100); POTASSIUM SERUM 4.2 MEQ/L (3.5-5.1); SODIUM LEVEL 139 MEQ/L (136-145)
== END ==
LOC: M LAB 08:07
PROVIDERS: ATTEND Physician Assistant
DX: E11.9 Type 2 diabetes mellitus without complications (principal)

== ENCOUNTER → 2019-05-20 | Outpatient (CLI) | payer MEDICARE, BC, OTHER ==
[~2019-05-20] MED LIST changes: +D3400CAP PO; -GLIM2TAB2 PO; +GLIM2TAB4 PO; +MULTCAP PO; +SM F10002 PO
[2019-05-20 09:08] LABS: HEMOGLOBIN 13.6 g/dl (12.0-15.5); MEAN CORPUSCULAR HEMOGLOBIN 29.3 pg (27.0-33.0); MEAN CORPUSCULAR HGB CONC 33.2 g/dl (32.0-36.5); MEAN CORPUSCULAR VOLUME 88.4 fl (80.0-96.0); PLATELET COUNT, AUTOMATED 207 10^3/uL (150-450); RED BLOOD COUNT 4.64 10^6/uL (4.00-5.40); WHITE BLOOD COUNT 5.9 10^3/uL (4.0-10.0)
[2019-05-20 09:12] LABS: INR 1.1; PROTHROMBIN TIME 13.9 SECONDS (11.8-14.0)
[2019-05-20 09:23] LABS: ALT/SGPT 37 U/L (12-78); BILIRUBIN,TOTAL 0.4 MG/DL (0.2-1.0); BLOOD UREA NITROGEN 8 MG/DL (7-18); CALCIUM LEVEL 9.4 MG/DL (8.8-10.2); CARBON DIOXIDE LEVEL 28 MEQ/L (21-32); CHLORIDE LEVEL 104 MEQ/L (98-107); CREATININE FOR GFR 0.85 MG/DL (0.55-1.30); GLOMERULAR FILTRATION RATE > 60.0 (>45); GLUCOSE, FASTING 142 MG/DL (70-100); POTASSIUM SERUM 4.3 MEQ/L (3.5-5.1); SODIUM LEVEL 139 MEQ/L (136-145); TOTAL PROTEIN 8.1 GM/DL (6.4-8.2)
[2019-05-20 09:41] LABS: ERYTHROCYTE SEDIMENTATION RATE 29 mm/hr (0-30)
--- NOTE | 2019-05-20 09:52 | REP ---
CHEST, TWO VIEWS: COMPARISON: 12/10/2014 There is no evidence of acute infiltrate. No pleural effusion is seen. The heart is normal in size. The mediastinal silhouette is unremarkable. The visualized osseous structures are intact. There are degenerative changes of the spine. IMPRESSION: No acute pulmonary disease. Electronically Signed by Diony Pizarro MD 05/20/2019 01:23 P
--- NOTE | 2019-05-20 21:28 | ECGEPIP ---
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
== END ==
LOC: M LAB 07:57
PROVIDERS: ATTEND Orthopaedic Surgery
DX: Z01.818 Encounter for other preprocedural examination (principal); M17.11 Unilateral primary osteoarthritis, right knee; E11.9 Type 2 diabetes mellitus without complications; R01.1 Cardiac murmur, unspecified; E07.9 Disorder of thyroid, unspecified; Z79.899 Other long term (current) drug therapy

== ENCOUNTER → 2019-06-04 | Outpatient (CLI) | payer MEDICARE, BC, OTHER ==
[~2019-06-04] MED LIST changes: +vitamin d PO
[2019-06-04 08:07] LABS: BASO # 0.1 10^3/uL (0.0-0.2); EOS # 0.2 10^3/uL (0.0-0.5); EOS % 3.2 % (0.0-3.0); HEMATOCRIT 41.6 % (36.0-47.0); HEMOGLOBIN 13.8 g/dl (12.0-15.5); LYMPH # 1.3 10^3/uL (1.5-5.0); LYMPH % 26.8 % (24.0-44.0); MEAN CORPUSCULAR HEMOGLOBIN 29.4 pg (27.0-33.0); MEAN CORPUSCULAR HGB CONC 33.2 g/dl (32.0-36.5); MEAN CORPUSCULAR VOLUME 88.7 fl (80.0-96.0); MONO # 0.4 10^3/uL (0.0-0.8); NEUTROPHILS % 60.8 % (36.0-66.0); PLATELET COUNT, AUTOMATED 183 10^3/uL (150-450); RED BLOOD COUNT 4.69 10^6/uL (4.00-5.40)
[2019-06-04 08:37] LABS: ALBUMIN 3.8 GM/DL (3.2-5.2); ALT/SGPT 36 U/L (12-78); BILIRUBIN,TOTAL 0.4 MG/DL (0.2-1.0); BLOOD UREA NITROGEN 14 MG/DL (7-18); CALCIUM LEVEL 9.1 MG/DL (8.8-10.2); CARBON DIOXIDE LEVEL 25 MEQ/L (21-32); CHLORIDE LEVEL 106 MEQ/L (98-107); CHOLESTEROL LEVEL 105 MG/DL (<200); CHOLESTEROL RISK RATIO 2.333 (<5); CREATININE FOR GFR 0.76 MG/DL (0.55-1.30); FREE T4 1.33 NG/DL (0.76-1.46); GLOMERULAR FILTRATION RATE > 60.0 (>45); GLUCOSE, FASTING 134 MG/DL (70-100); HDL CHOLESTEROL 45 MG/DL (>40); LDL CHOLESTEROL 39 MG/DL (<100); NON-HDL-C 60 MG/DL; POTASSIUM SERUM 4.5 MEQ/L (3.5-5.1); SODIUM LEVEL 139 MEQ/L (136-145); TOTAL PROTEIN 7.8 GM/DL (6.4-8.2); TRIGLYCERIDES LEVEL 103 MG/DL (<150)
[2019-06-04 08:38] LABS: CREATININE, URINE 62.4 MG/DL; MALB URINE SIEMENS < 5.0 MG/L
[2019-06-04 09:36] LABS: HEMOGLOBIN A1c 6.7 %
== END ==
LOC: M LAB 07:18
PROVIDERS: ATTEND Family Medicine
DX: E11.9 Type 2 diabetes mellitus without complications (principal); E78.00 Pure hypercholesterolemia, unspecified

== ENCOUNTER 2019-06-14 07:30 | Inpatient (IN) | payer MEDICARE, BC, OTHER ==
--- NOTE | 2019-06-04 13:00 | HPE ---
DATE OF ADMISSION: 06/14/2019 CHIEF COMPLAINT: Right knee pain. HISTORY OF PRESENT ILLNESS Rupali is a pleasant 64-year-old female with progressively worsening right knee pain and stiffness. She has failed to improve with conservative treatment. She has elected for surgery for her continued symptoms. She has pain with weightbearing activities and her activities of daily living. X-rays of her knee are notable for advanced osteoarthritis of the right knee joint. She consented for a right total knee arthroplasty by Dr. Nas Meza. Medical optimization was performed by MARGARET Baker. ALLERGIES: 1. PENICILLIN 2. SULFA. CURRENT MEDICATIONS: - multivitamin once a day - levothyroxine 137 mcg a day - lisinopril 2.5 mg a day - aspirin 81 mg a day - atorvastatin 40 mg a day - metformin HCL 500 tablets twice a day - Zoloft 50 mg a day - anastrozole 1 mg a day - vitamin D3 400 international units a day - glimepiride 2 mg a day - flaxseed oil 1200 mg a day - nystatin - triamcinolone PAST MEDICAL HISTORY: Includes: Diabetes. Hypertension, Hyperlipidemia. Hypothyroidism. History of breast cancer. PAST SURGICAL HISTORY: Includes: Tonsils and adenoids. Thyroidectomy. Cholecystectomy. Tubal ligation. Hammertoe correction bilaterally. Double mastectomy. Cataract removal bilaterally. SOCIAL HISTORY: She is retired. Quit smoking 13 years ago and does not drink alcohol. FAMILY HISTORY: Noncontributory. REVIEW OF SYSTEMS: This patient denies chest pain, heart palpitations, cough, wheezing, difficulty breathing and shortness of breath. She denies abdominal pain, nausea, vomiting, diarrhea or constipation. She denies recent upper respiratory infection or urinary tract infection symptoms. She does complain of persistent pain in the right knee. PHYSICAL EXAMINATION: GENERAL: She is well-developed, well-nourished, in no acute distress, alert female. She walks with a moderate limp favoring her right lower extremity. She uses a single-leg cane. VITAL SIGNS: She is 5 feet 5-1/2 inches, weigh is 219.6 pounds, temperature 97.1, blood pressure 140/78, respirations 17 and pulse of 90. Neck was supple without adenopathy or jugular venous distension. Lungs were clear to auscultation without rales or wheeze. Heart regular rate and rhythm. Abdomen bowel sounds were present. Extremities: Examination of the right knee revealed intact skin. She had decreased range of motion due to pain and stiffness. Of note, she also has some eczema about the left ankle that she is treating with nystatin and triamcinolone cream. LABORATORY DATA: EKG showed sinus rhythm with occasional PVCs, 88 beats per minute. Chest x-ray showed no acute cardiopulmonary disease processes. CBC was within normal limits. Sed rate was 29, glucose 142, BUN 8, creatinine 0.85, sodium 139, potassium 4.3. ProTime 13.9, INR 1.10. IMPRESSION: 1. Symptomatic osteoarthritis of the right knee joint. 2. Eczema left ankle. PLAN: Plan is for her to continue with her topical treatments for the eczema, it is on the opposite leg. So she is consented for a right total knee arthroplasty by Dr. Nas Meza.
[~2019-06-14] VITALS: Ht 170.2 cm; Wt 98.9 kg
[~2019-06-14 07:30] MED LIST changes: -METF-791 PO; +METF-838 PO
[2019-08-19] MEDS ORDERED: NYSTOI TOP (13:09)
--- NOTE | 2019-08-23 12:27 | HPE ---
DATE OF ANTICIPATED ADMISSION: 08/26/2019 ATTENDING PHYSICIAN: Dr. Nas Meza CHIEF COMPLAINT: Right knee pain and stiffness. HISTORY: This is a pleasant 64-year-old female patient with progressively worsening right knee pain and stiffness who has failed to improve with conservative management to include injections. She has elected for surgical intervention for her continued symptoms. She has been consented for right total knee arthroplasty with Dr. Nas Meza. ALLERGIES: - PENICILLIN - SULFA DRUGS CURRENT MEDICATIONS: - albuterol 108 mcg 1-2 puffs every 4-6 h as needed for shortness of breath - nystatin-triamcinolone topical applied to both feet twice a day as needed for irritation - glimepiride 2 mg one by mouth daily - flaxseed oil 1300 mg one by mouth daily - lisinopril 2.5 mg one by mouth daily - levothyroxine 137 mcg one by mouth daily - sertraline 50 mg one by mouth daily - lidocaine 5% apply patch to right shoulder as needed for pain - atorvastatin 40 mg one by mouth daily - metformin 500 mg two by mouth twice a day with food - 81 mg aspirin one by mouth daily - multivitamin one by mouth daily - anastrozole 1 mg one by mouth daily - vitamin D 400 units one by mouth daily PAST MEDICAL HISTORY: Postherpetic neuralgia. Hypothyroidism. Type 2 diabetes mellitus. History of breast cancer Hypercholesterolemia. Essential hypertension. Obesity. History of chemotherapy. PAST SURGICAL HISTORY: Tonsillectomy. Bilateral hammertoe correction. Thyroidectomy. Tubal ligation. Bilateral vasectomy. Cholecystectomy. Cataract removal and lens implant bilateral eyes. FAMILY HISTORY: Father: History of heart attack, hypertension and stroke, heart failure. Mother: History of stroke, brain aneurysm. SOCIAL HISTORY: The patient is a nonsmoker and does not use alcohol. REVIEW OF SYSTEMS: Denies fever, chills, chest pain, shortness breath, nausea, vomiting, or diarrhea. Denies any recent upper respiratory or urinary tract infection symptoms. PHYSICAL EXAMINATION: Height 5, 5-1/2. Weight 220. Temperature 98.1. Pulse 68. Blood pressure 132/82. Respirations 17. She is normocephalic, atraumatic, in no acute distress. Neck is supple and nontender with no lymphadenopathy or jugular venous distention (JVD) S1, S2 auscultated with no murmurs, rubs, or gallops. Lungs: Clear to auscultation bilaterally with no wheezes, rales, or rhonchi. Abdomen: Soft, nontender. The right knee shows intact overlying skin with no rashes or outbreaks in the skin. Right lower extremity is well perfused. She has intact range of motion, global tenderness to palpation of the right knee. LABORATORY DATA: White count 6, red count 4.8, hemoglobin 14.1, hematocrit 43.1. ESR 26. BUN 13, creatinine 0.81. PT 13.4, INR 1.05. CHEST X-RAY: No acute cardiopulmonary process. EKG: Sinus rhythm with occasional PVC, left axis deviation, and nonspecific T-wave abnormality. MEDICAL OPTIMIZATON: By MARGARET Baker, reviewed today on chart. The patient is medically optimized. ASSESSMENT: Symptomatic right knee degenerative changes. PLAN: Consented for right total knee arthroplasty with Dr. Nas Meza. The patient has stopped aspirin and flaxseed oil. She will take her medications with a sip of water holding her metformin the day of surgery.
[2019-08-26] VITALS (8 sets, daily range): BP systolic 119–133; BP diastolic 72–80; O2SAT 94
[2019-08-26] MEDS ORDERED: fentaNYL 100 MCG/2 ML INJECTION (J3010) IV SCH (06:00)
[2019-08-26] MEDS: LEVOTHYROXINE 137MCG TABLET (0.137MG) PO SCH (06:00)
[2019-08-26] MEDS ORDERED: LIDOCAINE 1% MDV 20ML VIAL SQ PRN (06:00)
[2019-08-26] MEDS ORDERED: LIDOCAINE 2% 100MG/5ML SDV (FOR ANES.) As Ordered ONE (08:14)
[2019-08-26] MEDS ORDERED: fentaNYL 100 MCG/2 ML INJECTION (J3010) As Ordered ONE ×2 (08:14→09:44)
[2019-08-26] MEDS ORDERED: MIDAZOLAM INJ 2MG/2ML VIAL (J2250 PER 1MG) As Ordered ONE ×2 (08:14→09:44)
[2019-08-26] MEDS ORDERED: propofoL 200 MG/20 ML VIAL As Ordered ONE ×2 (08:14→11:10)
[2019-08-26] MEDS ORDERED: **UNRESOLVED NON-FORMULARY MED ORDER XX SCH (09:00)
[2019-08-26] MEDS ORDERED: SERTRALINE HCL 50 MG TAB PO SCH ×2 (09:00→21:00)
[2019-08-26] MEDS: VITAMIN D (CHOLECALCIFEROL) 400 INTERNATIONAL UNITS TAB PO SCH (09:00)
[2019-08-26] MEDS ORDERED: CLINDAMYCIN 900 MG in IV 1 EA IV ONE (09:15)
[2019-08-26] MEDS ORDERED: TRANEXAMIC ACID 100 MG/ML 10ML VIAL As Ordered ONE (09:24)
[2019-08-26] MEDS ORDERED: EPINEPHrine INJ 1 MG/ML 1ML AMP As Ordered ONE (09:24)
[2019-08-26] MEDS ORDERED: CLINDAMYCIN INJ 900MG/6ML VIAL As Ordered ONE (09:24)
[2019-08-26] MEDS ORDERED: BUPIVACAINE LIPOSOME/PF 1.3% 20ML VIAL (13.3MG/ML)(EXPAREL)(C9290 PER1MG) As Ordered ONE (09:24)
[2019-08-26] MEDS ORDERED: LR 1,000 ML IV ONE (09:45)
[2019-08-26] MEDS: MIDAZOLAM INJ 2MG/2ML VIAL (J2250 PER 1MG) IV SCH ×2 (09:53→09:55)
--- NOTE | 2019-08-26 10:09 | IPN ---
DATE: 08/26/2019 The patient is seen and examined. She wishes to have a right total knee arthroplasty. She understands the nature of this and the risks of bleeding, infection, damage to nerves, vessels, persistent pain, wear, loosening, blood clots, medical problems, , among others.
[2019-08-26] MEDS ORDERED: ONDANSETRON 4MG/2ML VIAL As Ordered ONE (10:47)
[2019-08-26] MEDS ORDERED: ACETAMINOPHEN 1000MG 100ML IV BTL (OFIRMEV) (J0131 PER 10MG) As Ordered ONE (10:48)
[2019-08-26] MEDS ORDERED: fentaNYL 100 MCG/2 ML INJECTION (J3010) IV PRN (12:15)
[2019-08-26] MEDS ORDERED: ONDANSETRON 4MG/2ML VIAL IV PRN ×2 (12:15)
[2019-08-26] MEDS ORDERED: LR 1,000 ML IV SCH (12:15)
[2019-08-26] MEDS ORDERED: MORPHINE 2 MG/ML 1ML VIAL (J2270) IV PRN (12:15)
[2019-08-26] MEDS ORDERED: oxyCODONE 5MG TAB PO PRN (12:15)
[2019-08-26] MEDS ORDERED: MORPHINE 4 MG/ML 1ML VIAL/SYRINGE (J2270) IV PRN (12:15)
[2019-08-26] MEDS ORDERED: DEXTROSE 50% 50 ML SYRINGE IV PRN (12:15)
[2019-08-26] MEDS ORDERED: ENTER DRUG NAME HERE (PATIENT'S OWN MED) PO SCH (12:15)
[2019-08-26] MEDS ORDERED: GLUCOSE 4GM CHEW TABLET PO PRN (12:15)
[2019-08-26] MEDS: LR 1,000 ML IV SCH (12:15)
[2019-08-26] MEDS ORDERED: GLUCAGON INJ 1MG VIAL SC PRN (12:15)
--- NOTE | 2019-08-26 12:15 | CR.PDOC ---
General Date of Consultation: Aug 26, 2019 Consultation REASON FOR CONSULTATION/CHIEF COMPLAINT: Medical management Who presented to [facility] for an elective orthopedic procedure HISTORY OF PRESENT ILLNESS: Patient is a 64-year-old female with a past medical history of HTN, DLP, NIDDM2, hypothyroidism and history of breast cancer (s/p mastectomy) who has presented to the hospital for an elective orthopedic procedure. Patient has received medical clearance through her outpatient provider, Dr. Farris for her elective right knee arthroplasty. Patient has failed conservative measures as an outpatient. Hospitalist service was consulted for medical management. Patient was seen postoperatively. . Currently she denies any headache, nausea, vomiting, chest pain, shortness of breath, palpitations, cough, abdominal pain, constipation, diarrhea, or urinary discomfort. She denies any recent fevers or chills. Patient reports her appetite is fairly normal, but has had some weight gain that she attributes to glipizide. ALLERGIES: Please see below. HOME MEDICATIONS: Please see below. PAST MEDICAL HISTORY: HTN, DLP, NIDDM2, hypothyroidism and history of breast cancer (s/p mastectomy) PAST SURGICAL HISTORY: Tonsillectomy, adenoidectomy, thyroidectomy, cholecystectomy Tubal ligation Bilateral hammertoe correction Double mastectomy Bilateral cataract removal FAMILY HISTORY: - Family history was reviewed and is noncontributory SOCIAL HISTORY: - Denies the use of alcohol or illicit drugs; patient reports that she quit smoking greater than 15 years ago but was a smoker of greater than 35 years at 2 PPD - Denies recent travel or sick contacts - Lives with and daughter - Occupation; patient reports that 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 REVIEW OF SYSTEMS: 10 point review of systems complete, all negative otherwise stated in HPI PHYSICAL EXAMINATION: - Vitals: BP 116/59, HR 64, RR 16, Sat 98%NC2L, Temp 98.1F - General: Lying in bed, No acute distress, Speaking in full sentences, AAOx3 - HEENT: NC, AT, PERRLA, EOMI - CVS: RRR, +S1S2, - Murmurs / rubs / gallops - Lungs: Fair air entry bilaterally, No appreciable wheezing / rales / rhonchi - Abdomen: Soft, Non-distended, Non-tender - Extremities: No lower extremity edema, No calf tenderness - Neuro: No focal motor or sensory deficit - Skin: No visible rashes LABORATORY DATA: Please see below. ASSESSMENT/PLAN: Elective right knee arthroplasty - Presented to [facility] for an elective orthopedic procedure - Patient has received outpatient medical clearance from her primary care provider, Dr. Farris - Pain control, anticoagulation and physical therapy at the direction of orthope dic surgery HTN - Patient with her blood pressures usually well-controlled and takes blood pressure medications for renal protective effect for her DM2 - c/w Lisinopril DLP - c/w Atorvastatin NIDDM2 - Will start insulin sliding scale Hypothyroidism - Continue with levothyroxine History of breast cancer - s/p bilateral mastectomy - Will resume anastrozole based on outpatient dosing Depression - c/w Sertraline DVT prophylaxis - As per orthopedic surgery Vital Signs/I&O Vital Signs Date Time Temp Pulse Resp B/P (MAP) Pulse Ox O2 Delivery O2 Flow Rate FiO2 08/26/19 12:05 84 17 136/58 (84) 99 Room Air 08/26/19 12:00 2 08/26/19 11:56 98.1 Laboratory Data Labs 24H Laboratory Tests 2 08/26/19 07:35: Coronavirus (COVID-19)(PCR) NEGATIVE 08/26/19 08:51: Bedside Glucose (Misc Panel) 113 Allergies Coded Allergies: Penicillins (Verified Allergy, Intermediate, Hives, 08/19/19) Sulfa (Sulfonamide Antibiotics) (Verified Allergy, Intermediate, Hives, 08/19/19) Home Medications Scheduled Anastrozole (Anastrozole) 1 Mg Tab, 1 MG PO DAILY, #90 Aspirin (Aspirin EC) 81 Mg Tab, 81 MG PO DAILY, #30 (Reported) Atorvastatin Calcium (Atorvastatin Calcium) 40 Mg Tab, 40 MG PO QHS, (Reported) Flaxseed Oil (Flax Oil) 1,000 Mg Capsule, 1,000 MG PO DAILY, (Reported) Glimepiride (Glimepiride) 2 Mg Tablet, 2 MG PO DAILY for 30 Days, #30 (Reported) Levothyroxine Sodium (Levothyroxine Sodium) 137 Mcg Tab, 137 MCG PO DAILY, (Reported) Lisinopril (Lisinopril) 5 Mg Tab, 2.5 MG PO DAILY, (Reported) Metformin HCl (Metformin HCl ER) 500 Mg Tab, 1,000 MG PO BID, (Reported) Multivitamin (Multivitamins) 1 Each Capsule, 1 CAP PO DAILY, (Reported) Nystatin (Nystatin Oint) 30 Gm Oint...g., 0 TOP QHS, (Reported) left ankle Sertraline Hcl (Zoloft) 50 Mg Tab, 50 MG PO DAILY, (Reported) [vitamin d] , 400 UNIT PO DAILY, (Reported) AMAYA DAILEY MD Aug 26, 2019 12:15
[2019-08-26] MEDS ORDERED: LIDOCAINE 1% MDV 20ML VIAL ONE (13:25)
[2019-08-26] MEDS ORDERED: ROPIvacaine 0.5% 30ML INJECTION (J2795 PER 1MG) ONE (13:25)
[2019-08-26] MEDS ORDERED: dexameTHASONE 10MG/1ML VIAL PRES.FREE (J1100 PER 1MG) ONE (13:25)
[2019-08-26] MEDS: PERCOCET 5MG/325MG TAB PO PRN ×2 (15:17→21:37)
[2019-08-26] MEDS ORDERED: ACETAMINOPHEN TAB 650MG DOSE (2X325MG) PO PRN (16:00)
--- NOTE | 2019-08-26 16:23 | REP ---
RIGHT KNEE, TWO VIEWS: Two views of right knee are performed. There is placement of a total knee prosthesis in good position. Osseous structures are intact and well aligned. Multiple anterior metallic skin winston are seen. Electronically Signed by Diony Pizarro MD 08/26/2019 11:07 P
[2019-08-26] MEDS: CLINDAMYCIN 900 MG in IV 1 EA IV SCH (17:45)
[2019-08-26] MEDS: HumaLOG INSULIN (NovoLOG) PER UNIT SC SCH (17:45)
[2019-08-26] MEDS ORDERED: NYSTATIN OINTMENT 15 GM TOP SCH (21:00)
[2019-08-26] MEDS ORDERED: HumaLOG INSULIN (NovoLOG) PER UNIT SC SCH (21:00)
[2019-08-26] MEDS ORDERED: ATORVASTATIN 20 MG TAB PO SCH (21:00)
[2019-08-27] MEDS: LR 1,000 ML IV SCH (01:35)
[2019-08-27 02:00] VITALS: BP 115/60
[2019-08-27] MEDS: CLINDAMYCIN 900 MG in IV 1 EA IV SCH (02:12)
[2019-08-27] MEDS: LEVOTHYROXINE 137MCG TABLET (0.137MG) PO SCH (05:20)
[2019-08-27] MEDS: PERCOCET 5MG/325MG TAB PO PRN ×2 (05:24→11:45)
[2019-08-27 06:00] VITALS: BP 120/75
[2019-08-27 06:40] LABS: BASO % 0.1 % (0.0-1.0); HEMATOCRIT 32.6 % (36.0-47.0); HEMOGLOBIN 10.8 g/dl (12.0-15.5); LYMPH # 1.1 10^3/uL (1.5-5.0); LYMPH % 8.3 % (24.0-44.0); MEAN CORPUSCULAR HEMOGLOBIN 29.3 pg (27.0-33.0); MEAN CORPUSCULAR HGB CONC 33.1 g/dl (32.0-36.5); MEAN CORPUSCULAR VOLUME 88.3 fl (80.0-96.0); MONO # 0.7 10^3/uL (0.0-0.8); MONO % 5.5 % (0.0-5.0); NEUTROPHILS # 11.3 10^3/uL (1.5-8.5); NEUTROPHILS % 85.6 % (36.0-66.0); PLATELET COUNT, AUTOMATED 198 10^3/uL (150-450); RED BLOOD COUNT 3.69 10^6/uL (4.00-5.40); WHITE BLOOD COUNT 13.2 10^3/uL (4.0-10.0)
[2019-08-27] MEDS ORDERED: XARE10TA PO (06:49)
[2019-08-27] MEDS ORDERED: PERC5TAB12 PO (06:49)
[2019-08-27 07:01] LABS: BLOOD UREA NITROGEN 11 MG/DL (7-18); CALCIUM LEVEL 8.7 MG/DL (8.8-10.2); CARBON DIOXIDE LEVEL 26 MEQ/L (21-32); CHLORIDE LEVEL 103 MEQ/L (98-107); CREATININE FOR GFR 0.95 MG/DL (0.55-1.30); GLOMERULAR FILTRATION RATE > 60.0 (>45); GLUCOSE, FASTING 246 MG/DL (70-100); MAGNESIUM LEVEL 1.7 MG/DL (1.8-2.4); PHOSPHORUS LEVEL 3.3 MG/DL (2.5-4.9); POTASSIUM SERUM 4.3 MEQ/L (3.5-5.1); SODIUM LEVEL 137 MEQ/L (136-145)
[2019-08-27] MEDS: HumaLOG INSULIN (NovoLOG) PER UNIT SC SCH (07:49)
[2019-08-27 07:50] VITALS: BP 120/75
[2019-08-27] MEDS: VITAMIN D (CHOLECALCIFEROL) 400 INTERNATIONAL UNITS TAB PO SCH (07:50)
[2019-08-27] MEDS ORDERED: MAG SULF 1GM/100ML (MAG RUN) 1 GM in IV 1 EA IV ONE (08:15)
[2019-08-27] MEDS ORDERED: MULTIVITAMINS/MINERALS THERAP 1 TAB PO SCH (09:00)
[2019-08-27] MEDS ORDERED: LISINOPRIL *2.5 MG* TAB PO SCH (09:00)
[2019-08-27] MEDS ORDERED: MOM 30ML SUSPENSION UDC PO SCH (09:00)
[2019-08-27] MEDS ORDERED: MIRALAX *UNIT DOSE* 17GM PACKET PO SCH (09:00)
[2019-08-27 10:00] VITALS: BP 140/95
[2019-08-27] MEDS ORDERED: RIVAROXABAN 10 MG TAB (XARELTO) PO SCH (18:00)
--- NOTE | 2019-08-29 17:03 | RO ---
DATE OF PROCEDURE: 08/26/2019 PREOPERATIVE DIAGNOSIS: Right knee osteoarthritis. POSTOPERATIVE DIAGNOSIS: Right knee osteoarthritis. PROCEDURE: Right total knee arthroplasty using an Attune rotating platform posterior stabilized size 5 femur, size 6 tibia, 12 polyethylene, 35 patellar button. SURGEON: Nas Meza MD INTERNAL WHOLESALER: MARGARET Solis ANESTHESIA: Spinal. ESTIMATED BLOOD LOSS: 50. COMPLICATIONS: None. INDICATIONS: 64-year-old with severe arthritis of her knee and she wished to go ahead with knee replacement. Preop clearance was obtained. DESCRIPTION OF PROCEDURE: The patient was taken to the operating room and placed in supine position after spinal anesthesia was induced. The right lower extremity was prepped and draped in the usual sterile fashion. She did have a valgus knee. So, I anticipated using a posterior stabilized component. We prepped and draped the knee in the usual sterile fashion. Time-out was performed. Tourniquet was inflated and a longitudinal incision was made over the anterior aspect of the knee. Sharp dissection was carried down through subcutaneous tissue. A medial parapatellar arthrotomy was performed. I removed some of the fat pad. I did somewhat of a medial release. Flexed the knee up. Removed any osteophytes. Used a canal initiating reamer. I set it at 7 degrees of valgus and 9 mm cut. This was pinned in place and the distal femoral cut was made protecting soft tissues. I then sized the femur to be a 5. The cutting block was secured. Remaining cuts were made protecting soft tissues. She did have quite soft bone. I then prepared the tibia with retractors, the alignment guide in the appropriate amount of valgus and posterior slope. This was pinned in place taking 10 off the high side, which was 2 off the low side and low side was lateral. I pinned this in place. Checked the alignment and made the proximal tibia cut removing excess bone. I then prepared the box using box cutting guide. The remaining three cuts were made and removed the excess bone. I used the spacer blocks and was guessing between a 10 and 12 thickness polyethylene. Soft tissue was removed from either side of the knee. There were no significant osteophytes posteriorly, but there was a small loose body that was removed. I then prepared the tibia. size 6 fit nicely. This was pinned in place, drilled, broached and the trial components were placed. A size 12 polyethylene seemed to have excellent alignment and stability, full extension. I was pleased to flexion/extension gaps. I then freehand cut the patella removing about 7 mm of bone. Sized the patella to be a 35. The drill holes were placed and the drill holes were placed at end of the femur. The technical services assistant prepared the bone cement in modern technique. I removed the trial components. The patella did track very nicely. Once trial components removed, I irrigated and dried the bony surfaces. I injected the Exparel in the deep tissues. The cement was then placed on the tibial surface after drying it and then impacted in the tibial tray. Cemented on the femoral component, impacted in place. Removed all excess bone cement. Placed a 12 x 5 polyethylene and inserted it and it reduced nicely. I brought the knee out in extension, removed any excess bone cement. Placed the patella. Cemented it on and removed excess bone cement and held it in place with a clamp. We irrigated copiously. Placed the tranexamic acid (TXA). Repaired the deep layer with interrupted #1 Vicryl suture. Once the cement hardened, removed the patellar clamp. The remaining deep closure with Stratafix. The subcu was closed with #2-0 Vicryl and the skin with winston. Sterile dressing was applied. Tourniquet had been deflated when the cement hardened. She was taken to recovery room in stable condition. There were no known complications. The plan will be routine post-op.
== END 2019-08-27 11:50 | disposition home or self-care (01) | DRG 470 ==
LOC: M OR 08-26 07:01 → M MS5PR 08-26 13:10
PROVIDERS: ADMIT Orthopaedic Surgery; ATTEND Orthopaedic Surgery
PROC: 0SRC0J9 Replacement of Right Knee Joint with Synthetic Substitute, Cemented, Open Approach (ICD-10-PCS; principal; 2019-08-26 09:30)
DX: M17.11 Unilateral primary osteoarthritis, right knee (principal); E11.9 Type 2 diabetes mellitus without complications; I10 Essential (primary) hypertension; E78.5 Hyperlipidemia, unspecified; Z88.2 Allergy status to sulfonamides; Z88.0 Allergy status to penicillin; Z79.899 Other long term (current) drug therapy; Z87.891 Personal history of nicotine dependence; L30.9 Dermatitis, unspecified; Z85.3 Personal history of malignant neoplasm of breast; E66.9 Obesity, unspecified; Z90.13 Acquired absence of bilateral breasts and nipples; E03.9 Hypothyroidism, unspecified; Z79.82 Long term (current) use of aspirin

== ENCOUNTER → 2019-08-19 | Outpatient (CLI) | payer MEDICARE, BC, OTHER ==
[~2019-08-19] MED LIST changes: +NYSTOI TOP
[2019-08-19 10:53] LABS: BLOOD UREA NITROGEN 12 MG/DL (7-18); CALCIUM LEVEL 10.2 MG/DL (8.8-10.2); CARBON DIOXIDE LEVEL 30 MEQ/L (21-32); CHLORIDE LEVEL 103 MEQ/L (98-107); CREATININE FOR GFR 0.75 MG/DL (0.55-1.30); GLOMERULAR FILTRATION RATE > 60.0 (>45); GLUCOSE, FASTING 138 MG/DL (70-100); POTASSIUM SERUM 4.8 MEQ/L (3.5-5.1); SODIUM LEVEL 141 MEQ/L (136-145)
[2019-08-19 11:12] LABS: HEMOGLOBIN A1c 6.5 %
== END ==
LOC: M LAB 09:49
PROVIDERS: ATTEND Family Medicine
DX: E11.9 Type 2 diabetes mellitus without complications (principal)

== ENCOUNTER → 2019-08-19 | Outpatient (CLI) | payer MEDICARE, BC, OTHER ==
[2019-08-19 10:24] LABS: HEMATOCRIT 43.1 % (36.0-47.0); HEMOGLOBIN 14.1 g/dl (12.0-15.5); MEAN CORPUSCULAR HEMOGLOBIN 29.1 pg (27.0-33.0); MEAN CORPUSCULAR HGB CONC 32.7 g/dl (32.0-36.5); PLATELET COUNT, AUTOMATED 218 10^3/uL (150-450); RED BLOOD COUNT 4.84 10^6/uL (4.00-5.40)
[2019-08-19 10:35] LABS: INR 1.05; PROTHROMBIN TIME 13.4 SECONDS (11.8-14.0)
[2019-08-19 10:44] LABS: ERYTHROCYTE SEDIMENTATION RATE 26 mm/hr (0-30)
[2019-08-19 10:59] LABS: ALBUMIN 4.2 GM/DL (3.2-5.2); ALT/SGPT 41 U/L (12-78); BILIRUBIN,TOTAL 0.6 MG/DL (0.2-1.0); BLOOD UREA NITROGEN 13 MG/DL (7-18); CALCIUM LEVEL 9.8 MG/DL (8.8-10.2); CARBON DIOXIDE LEVEL 29 MEQ/L (21-32); CHLORIDE LEVEL 103 MEQ/L (98-107); CREATININE FOR GFR 0.81 MG/DL (0.55-1.30); GLOMERULAR FILTRATION RATE > 60.0 (>45); GLUCOSE, FASTING 134 MG/DL (70-100); POTASSIUM SERUM 4.9 MEQ/L (3.5-5.1); SODIUM LEVEL 138 MEQ/L (136-145); TOTAL PROTEIN 8.4 GM/DL (6.4-8.2)
== END ==
LOC: M LAB 09:46
PROVIDERS: ATTEND Orthopaedic Surgery
DX: Z01.818 Encounter for other preprocedural examination (principal); M17.11 Unilateral primary osteoarthritis, right knee; E11.9 Type 2 diabetes mellitus without complications

== ENCOUNTER → 2019-08-23 | Outpatient (CLI) | payer MEDICARE, BC, OTHER ==
[~2019-08-23] MED LIST changes: +PERC5TAB12 PO; +XARE10TA PO
== END ==
LOC: M LABSMTC 09:26
PROVIDERS: ATTEND Anesthesiology
DX: Z01.818 Encounter for other preprocedural examination (principal); Z11.59 Encounter for screening for other viral diseases

== ENCOUNTER → 2019-09-17 | Outpatient (RCR) | payer MEDICARE, BC, OTHER | LOC: M PT 08-30 10:30 | PROVIDERS: ATTEND Orthopaedic Surgery | DX: Z96.651 Presence of right artificial knee joint (principal) ==

== ENCOUNTER 2019-09-26 10:45 | Outpatient (RCR) | payer MEDICARE, BC, OTHER ==
[2019-10-01] MEDS ORDERED: ASPI81TA86 PO (11:08)
[2020-01-08] MEDS ORDERED: GLIP10TA PO (13:51)
[2020-01-08] MEDS ORDERED: ECOT81TA5 PO (13:51)
[2020-01-08] MEDS ORDERED: CALC-132 PO (13:51)
== END 2019-10-18 ==
LOC: M PT 10:45
PROVIDERS: ATTEND Orthopaedic Surgery
DX: Z96.651 Presence of right artificial knee joint (principal)

== ENCOUNTER → 2020-01-01 | Outpatient (CLI) | payer MEDICARE, BC, OTHER ==
[~2020-01-01] MED LIST changes: +ASPI81TA86 PO; +CALC-132 PO; +ECOT81TA5 PO; +GLIP10TA PO
[2020-01-01 09:23] LABS: BASO # 0.1 10^3/uL (0.0-0.2); BASO % 1.3 % (0.0-1.0); EOS # 0.2 10^3/uL (0.0-0.5); HEMATOCRIT 42.2 % (36.0-47.0); HEMOGLOBIN 13.5 g/dl (12.0-15.5); LYMPH # 1.6 10^3/uL (1.5-5.0); LYMPH % 30.2 % (24.0-44.0); MEAN CORPUSCULAR HEMOGLOBIN 27.8 pg (27.0-33.0); MEAN CORPUSCULAR VOLUME 86.8 fl (80.0-96.0); MONO # 0.4 10^3/uL (0.0-0.8); MONO % 6.8 % (0.0-5.0); NEUTROPHILS % 57.5 % (36.0-66.0); PLATELET COUNT, AUTOMATED 214 10^3/uL (150-450); RED BLOOD COUNT 4.86 10^6/uL (4.00-5.40); WHITE BLOOD COUNT 5.3 10^3/uL (4.0-10.0)
[2020-01-01 09:45] LABS: ALBUMIN 4.1 GM/DL (3.2-5.2); ALT/SGPT 42 U/L (12-78); BILIRUBIN,TOTAL 0.5 MG/DL (0.2-1.0); BLOOD UREA NITROGEN 9 MG/DL (7-18); CALCIUM LEVEL 9.8 MG/DL (8.8-10.2); CARBON DIOXIDE LEVEL 28 MEQ/L (21-32); CHLORIDE LEVEL 103 MEQ/L (98-107); CHOLESTEROL LEVEL 108 MG/DL (<200); CHOLESTEROL RISK RATIO 2.511 (<5); CREATININE FOR GFR 0.84 MG/DL (0.55-1.30); FREE T4 1.47 NG/DL (0.76-1.46); GLOMERULAR FILTRATION RATE > 60.0 (>45); GLUCOSE, FASTING 153 MG/DL (70-100); HDL CHOLESTEROL 43 MG/DL (>40); LDL CHOLESTEROL 25 MG/DL (<100); NON-HDL-C 65 MG/DL; POTASSIUM SERUM 4.3 MEQ/L (3.5-5.1); SODIUM LEVEL 138 MEQ/L (136-145); TRIGLYCERIDES LEVEL 202 MG/DL (<150)
[2020-01-01 10:15] LABS: HEMOGLOBIN A1c 6.6 %
== END ==
LOC: M LAB 08:02
PROVIDERS: ATTEND Family Medicine
DX: Z01.818 Encounter for other preprocedural examination (principal); M17.12 Unilateral primary osteoarthritis, left knee; E11.9 Type 2 diabetes mellitus without complications; E89.0 Postprocedural hypothyroidism

== ENCOUNTER → 2020-01-01 | Outpatient (CLI) | payer MEDICARE, BC, OTHER ==
[2020-01-01 09:22] LABS: INR 1.05; PROTHROMBIN TIME 13.9 SECONDS (12.5-14.3)
[2020-01-01 09:23] LABS: HEMATOCRIT 43.3 % (36.0-47.0); HEMOGLOBIN 14.2 g/dl (12.0-15.5); MEAN CORPUSCULAR HGB CONC 32.8 g/dl (32.0-36.5); MEAN CORPUSCULAR VOLUME 88.5 fl (80.0-96.0); PLATELET COUNT, AUTOMATED 194 10^3/uL (150-450); RED BLOOD COUNT 4.89 10^6/uL (4.00-5.40); WHITE BLOOD COUNT 5.9 10^3/uL (4.0-10.0)
[2020-01-01 09:40] LABS: ALT/SGPT 41 U/L (12-78); BILIRUBIN,TOTAL 0.5 MG/DL (0.2-1.0); BLOOD UREA NITROGEN 8 MG/DL (7-18); CALCIUM LEVEL 9.9 MG/DL (8.8-10.2); CARBON DIOXIDE LEVEL 28 MEQ/L (21-32); CHLORIDE LEVEL 103 MEQ/L (98-107); CREATININE FOR GFR 0.85 MG/DL (0.55-1.30); GLOMERULAR FILTRATION RATE > 60.0 (>45); GLUCOSE, FASTING 148 MG/DL (70-100); POTASSIUM SERUM 4.6 MEQ/L (3.5-5.1); SODIUM LEVEL 137 MEQ/L (136-145)
[2020-01-01 09:48] LABS: ERYTHROCYTE SEDIMENTATION RATE 19 mm/hr (0-30)
--- NOTE | 2020-01-01 10:12 | ECGEPIP ---
[facility] Test Date: 2020-01-01 Pat Name: KEESHA SARMIENTO Department: Room: - Gender: Female Group Reservations Coordinator: RF : 1955 Requested By: Nas Meza Order Number: [id number] Reading MD: Karla Parker Measurements Intervals [place] Rate: 87 P: 65 NC: 157 QRS: -34 QRSD: 84 T: 72 QT: 377 QTc: 456 Interpretive Statements SINUS RHYTHM WITH FREQUENT VENTRICULAR PREMATURE COMPLEXES LEFT AXIS DEVIATION MINIMAL VOLTAGE CRITERIA FOR LVH, CONSIDER NORMAL VARIANT IMPROVED R WAVE P PROGRESSION NONSPECIFIC T-WAVE ABNORMALITY PVCS MORE FREQUENT C/W3/2/20 BORDERLINE QTC Electronically Signed on 01-01-2020 10:11:53 EDT by Karla Parker
--- NOTE | 2020-01-06 10:38 | REP ---
CHEST XRAY: 01/01/20 CLINICAL: Pre-operative assessment for left knee assessment. TECHNIQUE: PA and lateral. COMPARISON: 05/20/19. FINDINGS: Mediastinum and cardiac silhouette are normal. The lung coles are clear. No consolidation, effusion, or pneumothorax. Skeletal structures intact. IMPRESSION: No acute cardiopulmonary process or focal consolidation. MTDD
== END ==
LOC: M LAB 08:04
PROVIDERS: ATTEND Orthopaedic Surgery
DX: Z01.818 Encounter for other preprocedural examination (principal); M17.12 Unilateral primary osteoarthritis, left knee

== ENCOUNTER 2020-01-11 08:41 | Emergency (ER) | payer MEDICARE, BC, OTHER ==
[~2020-01-11] VITALS: Ht 157.5 cm; Wt 100.8 kg
--- NOTE | 2020-01-11 09:21 | REP ---
INDICATION: FELL OFF CHAIR, HEARD SNAP COMPARISON: None. TECHNIQUE: AP, lateral, bilateral oblique views. FINDINGS: There is an oblique nondisplaced fracture through the distal fibular metadiaphysis with overlying soft tissue swelling. Underlying age-related changes noted. IMPRESSION: Oblique nondisplaced fracture of the distal fibular metadiaphysis <Electronically signed by Emilio Cunha > 01/11/20 09
[2020-01-11 11:31] VITALS: BP 150/65
== END 2020-01-11 11:37 | disposition home or self-care (01) ==
LOC: M ED 08:41
DX: S82.434A Nondisplaced oblique fracture of shaft of right fibula, initial encounter for closed fracture (principal); W01.0XXA Fall on same level from slipping, tripping and stumbling without subsequent striking against object, initial encounter; E11.9 Type 2 diabetes mellitus without complications; E66.9 Obesity, unspecified; F32.9 Major depressive disorder, single episode, unspecified; G47.33 Obstructive sleep apnea (adult) (pediatric); I10 Essential (primary) hypertension; M20.41 Other hammer toe(s) (acquired), right foot; M20.42 Other hammer toe(s) (acquired), left foot; R51.9 Headache, unspecified; Y92.9 Unspecified place or not applicable; Y93.9 Activity, unspecified; Y99.9 Unspecified external cause status; Z85.3 Personal history of malignant neoplasm of breast; Z90.13 Acquired absence of bilateral breasts and nipples; Z96.1 Presence of intraocular lens; Z96.651 Presence of right artificial knee joint

== ENCOUNTER → 2020-02-24 | Outpatient (CLI) | payer MEDICARE, BC, OTHER ==
[~2020-02-24] MED LIST changes: +ALBU8.5H INH; +LIDO5DIS41 TOP
--- NOTE | 2020-02-24 08:18 | REP ---
INDICATION: LEFT KNEE OSTEOARTHRITIS. COMPARISON: Comparison chest x-ray January 01, 2020. TECHNIQUE: Two views.. FINDINGS: The lungs are well inflated and free of infiltrate. The pleural angles are sharp. The heart size is normal. Pulmonary vasculature is not increased. No significant bony abnormality is seen. There are degenerative changes in the thoracic spine. There is a large calcification in the anterior abdomen on the lateral radiograph. This is visualized on prior CT imaging from September of 2017 and appears to be wall calcification is in a omental cyst. It is unchanged. IMPRESSION: No active disease.. <Electronically signed by Jose Franks > 02/24/20 [id number]
[2020-02-24 09:09] LABS: HEMATOCRIT 41.1 % (36.0-47.0); HEMOGLOBIN 13.3 g/dl (12.0-15.5); MEAN CORPUSCULAR HEMOGLOBIN 29.1 pg (27.0-33.0); MEAN CORPUSCULAR HGB CONC 32.4 g/dl (32.0-36.5); MEAN CORPUSCULAR VOLUME 89.9 fl (80.0-96.0); PLATELET COUNT, AUTOMATED 214 10^3/uL (150-450); RED BLOOD COUNT 4.57 10^6/uL (4.00-5.40); WHITE BLOOD COUNT 6.6 10^3/uL (4.0-10.0)
[2020-02-24 09:16] LABS: INR 0.84; PROTHROMBIN TIME 11.7 SECONDS (12.5-14.3)
[2020-02-24 09:28] LABS: ERYTHROCYTE SEDIMENTATION RATE 23 mm/hr (0-30)
[2020-02-24 09:30] LABS: ALBUMIN 3.9 GM/DL (3.2-5.2); ALT/SGPT 40 U/L (12-78); BILIRUBIN,TOTAL 0.4 MG/DL (0.2-1.0); BLOOD UREA NITROGEN 9 MG/DL (7-18); CALCIUM LEVEL 9.2 MG/DL (8.8-10.2); CARBON DIOXIDE LEVEL 27 MEQ/L (21-32); CHLORIDE LEVEL 104 MEQ/L (98-107); GLOMERULAR FILTRATION RATE > 60.0 (>45); GLUCOSE, FASTING 187 MG/DL (70-100); POTASSIUM SERUM 4.5 MEQ/L (3.5-5.1); SODIUM LEVEL 138 MEQ/L (136-145); TOTAL PROTEIN 7.7 GM/DL (6.4-8.2)
--- NOTE | 2020-02-24 16:41 | ECGEPIP ---
[facility] Test Date: 2020-02-24 Pat Name: KEESHA SARMIENTO Department: Room: - Gender: Female Sandblaster Supervisor: HUGH : 1955 Requested By: Nas Meza Order Number: [id number] Reading MD: Pierce Armstrong Measurements Intervals [place] Rate: 88 P: 62 DC: 174 QRS: -34 QRSD: 86 T: -16 QT: 374 QTc: 453 Interpretive Statements SINUS RHYTHM MINIMAL VOLTAGE CRITERIA FOR LVH Borderline left axis deviation. No PVCs compared with 01/01/2020. Electronically Signed on 02-24-2020 16:41:41 EST by Pierce Armstrong
== END ==
LOC: M LAB 07:48
PROVIDERS: ATTEND Orthopaedic Surgery
DX: Z01.818 Encounter for other preprocedural examination (principal); M25.562 Pain in left knee

== ENCOUNTER → 2020-02-28 | Outpatient (CLI) | payer MEDICARE, BC, OTHER | LOC: M LABSMTC 10:35 | PROVIDERS: ATTEND Anesthesiology | DX: Z01.812 Encounter for preprocedural laboratory examination (principal); Z20.828 Contact with and (suspected) exposure to other viral communicable diseases ==

== ENCOUNTER 2020-03-04 09:00 | Inpatient (IN) | payer MEDICARE, BC, OTHER ==
--- NOTE | 2020-03-01 20:45 | HPE ---
"HISTORY AND PHYSICAL DATE OF ADMISSION: 03/04/2020 CHIEF COMPLAINT: Left knee pain and swelling. HISTORY: This is a 64-year-old female patient with progressively worsening left knee pain and stiffness. She failed to improve with conservative management. She has pain with weightbearing activities and activities of daily living in the left knee. She has elected for surgery for continued symptoms. She has consented for a left total knee arthroplasty by Dr. Meza. X-rays notable for end-stage degenerative changes of the left knee. | ALLERGIES: PENICILLIN and SULFUR MEDICATIONS. CURRENT MEDICATIONS INCLUDE: Letrozole 2.5 mg, glimepiride 2 mg, atorvastatin 40 mg, levothyroxine 137 mcg, sertraline 50 mg, metformin extended release 500 mg, anastrozole 1 mg, lisinopril 2.5 mg and aspirin 81 daily. She understands to discontinue the aspirin 5 days prior. She was consulted about no NSAIDS five days prior to surgery. MEDICAL HISTORY INCLUDES: 1. Symptomatic osteoarthritis to the left knee. 2. Type 2 diabetes 3. Hypertension 4. Elevated cholesterol 5. Hypothyroidism. SURGICAL HISTORY INCLUDES: Removal of her tonsils, she has had a thyroidectomy, gallbladder removed, tubal ligation, mastectomy, hammertoe surgery and cataract surgery. FAMILY HISTORY: Hypertension, elevated cholesterol, heart disease and thyroid disease. SOCIAL HISTORY: She does not currently smoke. She does not use alcohol. REVIEW OF SYSTEMS: Denies fevers or chills. Denies chest pain, shortness of breath or cough, denies difficulty breathing, denies abdominal pain, denies nausea or vomiting. She has persistent pain in her left knee with weightbearing activities and activities of daily living. Denies exposure to COVID 19. PHYSICAL EXAMINATION: Examination today reveals a well-nourished, well-developed female patient who ambulates with limb gait; she favoring to her left side. Examination of the left knee reveals a near full range of motion of the knee with some irritability with extremes of range of motion. Skin around the knee is intact. No erythema, edema, ecchymosis. Stable varus and valgus stress. Calf is soft, nontender to palpation. It is well perfuse. Left lower extremity is intact to light touch. Neck is supple without adenopathy or jugular venous distention (JVD). Lungs are clear to auscultation without rales or wheeze. Heart: Regular rate and rhythm. Abdomen: Bowel sounds are present. Vital signs: Blood pressure 130/70, pulse 60, respirations 16, temperature 97.1. Height 67 inches, weight 230 pounds. LABORATORY DATA: Prothrombin time 11.7, INR 0.84, sedimentation rate 23, white blood cell count 6.6, RBC count 4.5, hemoglobin 13.3, hematocrit 41.1, glucose 187. BUN 9, creatinine 0.9. Sodium 138, potassium 4.5. Chest x-ray: No acute cardiopulmonary disease process noted. Electrocardiogram (EKG): Sinus rhythm. IMPRESSION: Symptomatic osteoarthritis of the left. PLAN: She has been consented by Dr. Meza for a left total knee arthroplasty. We will give the pre and postoperative instructions. Went over the list to do no NSAIDS 5 days prior to surgery. We stressed only take medications as directed by primary or anesthesia. If she does have to take any medications, only take that with a small sip of water. She will be nothing by mouth after midnight. Went over what nothing by mouth means. We discussed that she should self quarantine after COVID testing. We also discussed the importance of being on time for the scheduled arrival time and we discussed the current visitation policy and current COVID policy. She understands the plan. All of her questions were answered. Nas Meza MD"
[~2020-03-04] VITALS: Ht 170.2 cm; Wt 101.1 kg
[2020-03-04] MEDS ORDERED: CLINDAMYCIN 900 MG in IV 1 EA IV ONE (10:00)
[2020-03-04] MEDS ORDERED: LIDOCAINE 1% MDV 20ML VIAL XX ONE (10:30)
[2020-03-04] MEDS ORDERED: ROPIvacaine 0.5% 30ML INJECTION (J2795 PER 1MG) XX ONE (10:30)
[2020-03-04] MEDS ORDERED: dexameTHASONE 10MG/1ML VIAL PRES.FREE (J1100 PER 1MG) XX ONE (10:30)
[2020-03-04] MEDS ORDERED: MIDAZOLAM INJ 2MG/2ML VIAL (J2250 PER 1MG) As Ordered ONE (10:39)
[2020-03-04] MEDS ORDERED: propofoL 500 MG/50 ML VIAL As Ordered ONE (10:39)
[2020-03-04] MEDS ORDERED: LIDOCAINE 2% 100MG/5ML SDV (FOR ANES.) As Ordered ONE (10:39)
[2020-03-04] MEDS ORDERED: fentaNYL 100 MCG/2 ML INJECTION (J3010) As Ordered ONE (10:39)
[2020-03-04] MEDS ORDERED: ONDANSETRON 4MG/2ML VIAL As Ordered ONE (10:39)
[2020-03-04] MEDS: fentaNYL 100 MCG/2 ML INJECTION (J3010) IV PRN ×2 (11:09→11:14)
[2020-03-04] MEDS: MIDAZOLAM INJ 2MG/2ML VIAL (J2250 PER 1MG) IV PRN ×3 (11:09→11:14)
[2020-03-04] MEDS ORDERED: BUPIVACAINE HCL 0.25% 30ML VIAL As Ordered ONE (11:43)
[2020-03-04] MEDS ORDERED: TRANEXAMIC ACID 100 MG/ML 10ML VIAL As Ordered ONE (11:43)
[2020-03-04] MEDS ORDERED: ceFAZolin 1GM VIAL (J0690 PER 500MG) As Ordered ONE (11:44)
[2020-03-04] MEDS ORDERED: BUPIVACAINE LIPOSOME/PF 1.3% 20ML VIAL (13.3MG/ML)(EXPAREL)(C9290 PER1MG) As Ordered ONE (11:44)
[2020-03-04] MEDS ORDERED: EPINEPHrine INJ 1 MG/ML 1ML AMP As Ordered ONE (11:44)
[2020-03-04] MEDS ORDERED: CLINDAMYCIN INJ 900MG/6ML VIAL As Ordered ONE (12:03)
--- NOTE | 2020-03-04 12:28 | IPN ---
PROGRESS NOTE DATE: 03/04/2020 SUBJECTIVE AND PLAN: Patient seen and examined. She wishes to go ahead with a left total knee arthroplasty likely posterior stabilized as she had had on her contralateral side. She did very well on the contralateral side earlier this year. She understands the nature of this, the risks of bleeding, infection, damage to nerves and vessels, persistent pain, robertson loosening, blood clots, medical problems, among others.
[2020-03-04] MEDS ORDERED: PHENYLephrine HCL 500 MCG/5 ML (100MCG/ML) SYRINGE (J2370) As Ordered ONE (12:48)
[2020-03-04] MEDS ORDERED: propofoL 200 MG/20 ML VIAL As Ordered ONE (13:23)
[2020-03-04] MEDS ORDERED: LR 1,000 ML IV SCH ×2 (14:00→14:15)
[2020-03-04] MEDS ORDERED: MORPHINE 4 MG/ML 1ML VIAL/SYRINGE (J2270) IV PRN (14:00)
[2020-03-04] MEDS ORDERED: ONDANSETRON 4MG/2ML VIAL IV PRN ×2 (14:00→14:15)
[2020-03-04] MEDS ORDERED: ACETAMINOPHEN TAB 650MG DOSE (2X325MG) PO PRN (14:00)
[2020-03-04] MEDS ORDERED: MORPHINE 2 MG/ML 1ML VIAL (J2270) IV PRN (14:00)
[2020-03-04] MEDS ORDERED: oxyCODONE 5MG TAB PO PRN (14:15)
[2020-03-04] MEDS ORDERED: fentaNYL 100 MCG/2 ML INJECTION (J3010) IV PRN (14:15)
--- NOTE | 2020-03-04 14:18 | REP ---
INDICATION: S/P Total COMPARISON: None. TECHNIQUE: There are two views FINDINGS: Postop left knee two views: There is a total knee arthroplasty with the components tightly applied at in satisfactory positions and alignment. Skin winston are incidentally noted. IMPRESSION: Total knee arthroplasty as described. <Electronically signed by Diony Neumann > 03/04/20 [id number]
[2020-03-04 15:10] VITALS: BP 128/72
[2020-03-04 15:40] VITALS: BP 136/72
--- NOTE | 2020-03-04 15:49 | RO ---
OPERATIVE NOTE DATE OF OPERATION: 03/04/2020 PREOPERATIVE DIAGNOSIS: Left knee osteoarthritis. POSTOPERATIVE DIAGNOSIS: Left knee osteoarthritis. PROCEDURE: Left total knee arthroplasty, Attune rotating platform, posterior stabilized size 5 femur, size 6 tibial tray, 12 polyethylene, 35 patellar button. SURGEON: Nas Meza MD RETAIL BEAUTY SPECIALIST: MARGARET Leiva ANESTHESIA: Spinal. EBL: 50. COMPLICATIONS: None. PROCEDURE: The patient was taken to the operating room and placed in the supine position after spinal anesthesia was induced. The left lower extremity was prepped and draped in the usual sterile fashion. It was noted that she did have some recurvatum and significant valgus alignment. A time out was performed. Tourniquet was inflated. A longitudinal incision was made over the anterior aspect of the knee. Sharp dissection was carried down through subcutaneous tissue until fascia was encountered. I then incised this and made a medial parapatellar arthrotomy per routine. I then everted the patella, flexed the knee up and used the canal-initiating reamer on the femoral side. I set the guide to 7 degrees of valgus and 9 mm cut. This was pinned in place and the distal femoral cut was made protecting soft tissues. I sized the femur to be 5. The drill holes were placed in the end of the femur and the external rotation was dialed in. The cutting block was secured and the remaining cuts were made. I then prepared the tibia, freed up the PCL and used the tibial alignment guide in appropriate amount of valgus and posterior slope, pinned this in place at about 2 mm off the lateral side which was the low side which still was quite sizable cut off the medial side. This cut was made protecting soft tissues. I removed the excess bone and then used a aoc plans intelligence officer chief to remove soft tissue and osteophytes from either side of the knee. I made the box cut in the usual fashion removing excess bone. I then prepared the tibia. The size 6 tray fit nicely, this is actually the same size that we used on the contralateral knee and pinned this into place and made the drill hole and put the broach in. I had prior to this used the spacer blocks and the size 12 thickness was the most appropriate in flexion and extension and had excellent balance in both. Overall alignment was excellent. I removed osteophytes from this point from around the femur which were extensive and around the proximal tibia. The trial components were then inserted which fit very nicely. I put the knee through range of motion with 12 polyethylene and it tracked very nicely. The range of motion was excellent. I then free-hand cut the patella, removing about 7 mm of bone, sized to be 35, the drill holes were placed in the patella. The patella was placed, I did have to do a slight lateral release to get the patella to track and drilled the holes in the end of the femur. I removed the trial components. I then irrigated copiously, injected the Exparel, some in the posterior capsule and rest around the knee. I irrigated, dried the bony surfaces as the judicial assistant prepared the bone cement in modern technique. I then cemented on the components, removed excess bone cement, held the patella in place with patellar clamp. I irrigated again and placed the TXA deep in the wound and then began closing the deep layer with #1 Vicryl suture and running Stratafix. Once the cement hardened I removed the patellar clamp and completed the closure after final irrigation in the deep layer. I then irrigated and closed the subcu with 2-0 Vicryl and the skin with winston. A sterile dressing was applied. She was taken to the recovery room in stable condition. There were no known complications. The plan will be routine postop. The judicial assistant was instrumental in holding retractors and assisting in mixing the bone cement and assisting in wound closure.
[2020-03-04 16:40] VITALS: BP 126/59
[2020-03-04] MEDS: PERCOCET 5MG/325MG TAB PO PRN (17:23)
[2020-03-04] MEDS ORDERED: GLUCOSE 4GM CHEW TABLET PO PRN (17:30)
[2020-03-04] MEDS ORDERED: DEXTROSE 50% 50 ML SYRINGE IV PRN (17:30)
[2020-03-04] MEDS ORDERED: GLUCAGON INJ 1MG VIAL SC PRN (17:30)
--- NOTE | 2020-03-04 17:58 | HPEPDOC ---
General Date of Admission Mar 04, 2020 at 09:00 Date of Service: Mar 04, 2020 Chief Complaint The patient is a 64-year-old female admitted with a reason for visit of Left Knee Arthritis. Source: Patient History of Present Illness Consultation Report Consultation requested by orthopedics Reason for consultation: Management of medical commorbidities. HPI: 64 year old female with PMH of HTN, DLP, NIDDM2, OA, hypothyroidism and history of left breast cancer (s/p bilateral mastectomy) was admitted for elective Left total knee arthroplasty for advanced osteoarthritis. Patient had an uneventful surgery. At present she complains of left knee pain about 5/10 sharp aching constant in nature. Home Medications Scheduled Anastrozole (Anastrozole) 1 Mg Tab, 1 MG PO DAILY Aspirin (Ecotrin) 81 Mg Tablet.dr, 81 MG PO DAILY, (Reported) Atorvastatin Calcium (Atorvastatin Calcium) 40 Mg Tab, 40 MG PO QHS, (Reported) Calcium Carb/Magnesium Oxid/D3 (Calcium Magnesium + D Tablet) 1 Each Tablet, 1 TAB PO DAILY, (Reported) Flaxseed Oil (Flax Oil) 1,000 Mg Capsule, 1,000 MG PO DAILY, (Reported) Glipizide (Glipizide) 10 Mg Tablet, 2 MG PO DAILY, (Reported) Levothyroxine Sodium (Levothyroxine Sodium) 137 Mcg Tab, 137 MCG PO DAILY, (Reported) Lidocaine (Lidoderm) 5% Adh..patch, 1 PATCH TOP DAILY, (Reported) may wear up to 12 hours Lisinopril (Lisinopril) 5 Mg Tab, 2.5 MG PO DAILY, (Reported) Metformin HCl (Metformin HCl ER) 500 Mg Tab, 1,000 MG PO BID, (Reported) Multivitamin (Multivitamins) 1 Each Capsule, 1 CAP PO DAILY, (Reported) Sertraline Hcl (Zoloft) 50 Mg Tab, 50 MG PO DAILY, (Reported) [vitamin d] , 400 UNIT PO DAILY, (Reported) Scheduled PRN Albuterol Sulfate (Albuterol Sulfate Hfa) 8.5 Gm Hfa.aer.ad, 1-2 PUFF INH Q4-6HP PRN for WHEEZING, (Reported) Allergies Coded Allergies: Penicillins (Verified Allergy, Intermediate, Hives, 01/11/20) Sulfa (Sulfonamide Antibiotics) (Verified Allergy, Intermediate, Hives, 01/11/20) Past Medical History Medical History HTN, DLP, NIDDM2, hypothyroidism and history of breast cancer (s/p mastectomy), depression Surgical History Tonsillectomy, adenoidectomy, thyroidectomy, cholecystectomy Tubal ligation Bilateral hammertoe correction Double mastectomy Bilateral cataract removal Right total knee arthroplasty in August 2019 Family History Significant Family History: Heart disease, Hypertension, Hyperlipidemia thyroid disease. Social History * Smoker: former Smoker Alcohol: occationally Drugs: denies A-FIB/CHADSVASC A-FIB History Current/History of A-Fib/PAF?: No Review of Systems Constitutional: Denies: Chills, Fever, Night Sweats Eyes: Denies: Pain, Vision change ENT: Denies: Head Aches, Ear Pain, Dysphagia Skin: Denies: Rash, Lesions, Breakdown Pulmonary: Denies: Dyspnea, Cough Cardiovascular: Denies: Chest Pain, Palpitations, Orthopnea, Paroxysmal Noc. D yspnea, Lt Headedness Gastrointestinal: Denies: Nausea, Vomiting, Abdominal Pain, Diarrhea Genitourinary: Denies: Dysuria, Frequency, Incontinence, Retention Musculoskeletal: Reports: Joint Pain (left knee) Physical Examination General Exam: Positive: Alert, Cooperative, No Acute Distress Eye Exam: Positive: PERRLA, Conjunctiva & lids normal, EOMI; Negative: Sclera icteric ENT Exam: Positive: Atraumatic, Mucous membr. moist/pink, Pharynx Normal Neck Exam: Positive: Supple; Negative: JVD, thyromegaly Chest Exam: Positive: Clear to auscultation, Normal air movement Heart Exam: Positive: Rate Normal, Regular Rhythm, Normal S1, Normal S2; Negative: Murmurs, Rubs Abdomen Exam: Positive: Normal bowel sounds, Soft; Negative: Tenderness, Hepatospenomegaly Extremity Exam: Positive: Normal pulses; Negative: Clubbing, Cyanosis, Edema Skin Exam: Positive: Nl turgor and temperature; Negative: Breakdown, Lesion Vital Signs Vital Signs Date Time Temp Pulse Resp B/P (MAP) Pulse Ox O2 Delivery O2 Flow Rate FiO2 03/04/20 16:40 97.8 94 18 126/59 (81) 95 Room Air 03/04/20 12:00 3 Laboratory Data Labs 24H Laboratory Tests 2 03/04/20 09:55: Bedside Glucose (Misc Panel) 161H 03/04/20 16:23: Bedside Glucose (Misc Panel) 322H Assessment/Plan Left knee OA s/p elective total knee arthroplasty pain control and DVT prophylaxis as per orthopedics. HTN will hold lisinopril DLP statin NIDDM2 will hold metformin continue glimepiride and lispro as per sliding scale hypothyroidism synthroid Depression sertraline Breast Cancer in 2016 in remission Inflammatory breast cancer with left breast skin biopsy showing presence of tumor nests noted in dermal lymphatic channels. Infiltrating ductal carcinoma, grade 3, ER positive, [place] positive and HER2 negative. s/p Left modified radical mastectomy and prophylactic right simple mastectomy and Chemotherapy Now on Anastrozole Plan / VTE VTE Prophylaxis Ordered?: Yes SAI MEZA MD Mar 04, 2020 17:34
[2020-03-04] MEDS: HumaLOG INSULIN (NovoLOG) PER UNIT SC SCH ×2 (18:04→21:27)
[2020-03-04 19:40] VITALS: BP 105/63
[2020-03-04] MEDS: CLINDAMYCIN 900 MG in IV 1 EA IV SCH (20:24)
[2020-03-04] MEDS: ATORVASTATIN 20 MG TAB PO SCH (20:24)
[2020-03-05 02:00] VITALS: BP 106/74
[2020-03-05] MEDS: CLINDAMYCIN 900 MG in IV 1 EA IV SCH (04:37)
[2020-03-05] MEDS: PERCOCET 5MG/325MG TAB PO PRN ×3 (04:38→21:47)
[2020-03-05 06:00] VITALS: BP 105/58
[2020-03-05] MEDS: LEVOTHYROXINE 137MCG TABLET (0.137MG) PO SCH (06:14)
[2020-03-05] MEDS ORDERED: XARE10TA PO (06:24)
[2020-03-05] MEDS ORDERED: PERC5TAB12 PO (06:24)
[2020-03-05] MEDS ORDERED: glipiZIDE *2.5MG* 1/2 TABLET PO SCH (07:30)
[2020-03-05] MEDS: GLIMEPIRIDE 2 MG TAB PO SCH (07:41)
[2020-03-05] MEDS: HumaLOG INSULIN (NovoLOG) PER UNIT SC SCH ×4 (07:42→21:00)
[2020-03-05] MEDS: SERTRALINE HCL 50 MG TAB PO SCH (07:42)
[2020-03-05 08:39] LABS: HEMATOCRIT 32.7 % (36.0-47.0); HEMOGLOBIN 10.5 g/dl (12.0-15.5); MEAN CORPUSCULAR HEMOGLOBIN 28.2 pg (27.0-33.0); MEAN CORPUSCULAR HGB CONC 32.1 g/dl (32.0-36.5); MEAN CORPUSCULAR VOLUME 87.9 fl (80.0-96.0); PLATELET COUNT, AUTOMATED 212 10^3/uL (150-450); RED BLOOD COUNT 3.72 10^6/uL (4.00-5.40); WHITE BLOOD COUNT 13.3 10^3/uL (4.0-10.0)
[2020-03-05 08:57] LABS: CALCIUM LEVEL 8.7 MG/DL (8.8-10.2); CREATININE FOR GFR 1.13 MG/DL (0.55-1.30); GLOMERULAR FILTRATION RATE 51.6 (>45); POTASSIUM SERUM 4.5 MEQ/L (3.5-5.1)
[2020-03-05] MEDS: MIRALAX *UNIT DOSE* 17GM PACKET PO SCH (09:00)
[2020-03-05] MEDS: MOM 30ML SUSPENSION UDC PO SCH (09:00)
[2020-03-05 10:00] VITALS: BP 124/66
--- NOTE | 2020-03-05 13:05 | IPNPDOC ---
Subjective Date Seen The patient was seen on 03/05/20. Subjective Chief Complaint/HPI Left knee pain but controlled with pain meds. Had some increased bleeding at the surgical site this morning. Objective Physical Examination General Exam: Positive: Alert, Cooperative, No Acute Distress Eye Exam: Positive: PERRLA, Conjunctiva & lids normal, EOMI; Negative: Sclera icteric ENT Exam: Positive: Atraumatic, Mucous membr. moist/pink, Pharynx Normal Neck Exam: Positive: Supple; Negative: JVD, thyromegaly Chest Exam: Positive: Clear to auscultation, Normal air movement Heart Exam: Positive: Rate Normal, Regular Rhythm, Normal S1, Normal S2; Negative: Murmurs, Rubs Abdomen Exam: Positive: Normal bowel sounds, Soft; Negative: Tenderness, Hepatospenomegaly Extremity Exam: Positive: Normal pulses; Negative: Clubbing, Cyanosis, Edema Skin Exam: Positive: Nl turgor and temperature; Negative: Breakdown, Lesion Assessment /Plan Assessment 64 year old female with PMH of HTN, DLP, NIDDM2, OA, hypothyroidism and history of left breast cancer (s/p bilateral mastectomy) was admitted for elective Left total knee arthroplasty for advanced osteoarthritis. Left knee OA s/p elective total knee arthroplasty pain control and DVT prophylaxis as per orthopedics. HTN will hold lisinopril DLP statin NIDDM2 will hold metformin continue glimepiride and lispro as per sliding scale hypothyroidism synthroid Depression sertraline Breast Cancer in 2016 in remission Inflammatory breast cancer with left breast skin biopsy showing presence of tumor nests noted in dermal lymphatic channels. Infiltrating ductal carcinoma, grade 3, ER positive, [place] positive and HER2 negative. s/p Left modified radical mastectomy and prophylactic right simple mastectomy and Chemotherapy Now on Anastrozole Plan/VTE VTE Prophylaxis Ordered?: Yes VS, I&O, 24H, Fishbone Vital Signs/I&O Vital Signs Date Time Temp Pulse Resp B/P (MAP) Pulse Ox O2 Delivery O2 Flow Rate FiO2 03/05/20 05:08 19 Room Air 03/05/20 02:00 97.7 87 106/74 (85) 94 03/04/20 12:00 3 I&O- Last 24 Hours up to 6 AM 03/05/20 07:00 Intake Total 2400 ml Output Total 200 ml Balance 2200 ml Laboratory Data 24H LABS Laboratory Tests 2 03/04/20 09:55: Bedside Glucose (Misc Panel) 161H 03/04/20 16:23: Bedside Glucose (Misc Panel) 322H 03/04/20 21:18: Bedside Glucose (Misc Panel) 322H SAI MEZA MD Mar 05, 2020 06:13
[2020-03-05 14:00] VITALS: BP 125/72
[2020-03-05] MEDS ORDERED: RIVAROXABAN 10 MG TAB (XARELTO) PO SCH (18:00)
[2020-03-05 19:54] VITALS: BP 135/79
[2020-03-05] MEDS: ATORVASTATIN 20 MG TAB PO SCH (21:47)
[2020-03-06 05:54] VITALS: BP 142/82
[2020-03-06] MEDS: LEVOTHYROXINE 137MCG TABLET (0.137MG) PO SCH (06:11)
[2020-03-06] MEDS: HumaLOG INSULIN (NovoLOG) PER UNIT SC SCH (07:30)
[2020-03-06] MEDS: SERTRALINE HCL 50 MG TAB PO SCH (08:52)
[2020-03-06] MEDS: MIRALAX *UNIT DOSE* 17GM PACKET PO SCH (08:52)
[2020-03-06] MEDS: GLIMEPIRIDE 2 MG TAB PO SCH (08:53)
[2020-03-06] MEDS: MOM 30ML SUSPENSION UDC PO SCH (08:53)
[2020-03-06] MEDS: PERCOCET 5MG/325MG TAB PO PRN (08:58)
--- NOTE | 2020-03-09 16:29 | DSES ---
DISCHARGE SUMMARY DATE OF ADMISSION: 03/04/2020 DATE OF DISCHARGE: 03/06/2020 ADMISSION DIAGNOSIS: Osteoarthritis, left knee. OTHER DIAGNOSES: 1. Hypertension. 2. Elevated lipids. 3. Myf-peogwoo-mecoezibg diabetes type 2. 4. Hypothyroidism. 5. History of breast cancer. DISCHARGE DIAGNOSIS: Osteoarthritis, left knee, status post left total knee arthroplasty. OPERATIVE PROCEDURE: Left total knee arthroplasty. ATTENDING: Nas Meza M.D. HISTORY OF PRESENTING ILLNESS: This is a 64-year-old female patient with progressively worsening left knee pain and stiffness. She failed to improve with conservative management. She was admitted for elective knee replacement on the left side. HOSPITAL COURSE: The patient was admitted on the day of surgery and underwent the left total knee arthroplasty, which was uneventful. She did well in the postoperative period and her hospital course was without complications. She was up with physical therapy per their protocol. Her pain was controlled. DISCHARGE PHYSICAL EXAMINATION: On the day of discharge, she was weightbearing as tolerated on her left lower extremity. DISCHARGE INSTRUCTIONS: She will use Xarelto 10 mg per the protocol for DVT prophylaxis. She will also use TEDs stocking for 30 days postoperatively as well for DVT prophylaxis. She will resume her preoperative medications and diet. She will use oral pain medications for pain control. She will follow-up in our office in 10-14 days for surgical follow-up. She was given instructions to include, but not limited to wound monitoring and activity limitations. Please refer to the medical record for further details.
== END 2020-03-06 09:40 | disposition home health service (06) | DRG 470 ==
LOC: M OR 09:00 → M MS5PR 15:32
PROVIDERS: ADMIT Orthopaedic Surgery; ATTEND Orthopaedic Surgery
PROC: 0SRD0J9 Replacement of Left Knee Joint with Synthetic Substitute, Cemented, Open Approach (ICD-10-PCS; principal; 2020-03-04 11:45)
DX: M17.12 Unilateral primary osteoarthritis, left knee (principal); E11.9 Type 2 diabetes mellitus without complications; I10 Essential (primary) hypertension; E78.5 Hyperlipidemia, unspecified; R26.89 Other abnormalities of gait and mobility; E89.0 Postprocedural hypothyroidism; Z79.84 Long term (current) use of oral hypoglycemic drugs; Z79.899 Other long term (current) drug therapy; Z98.41 Cataract extraction status, right eye; Z98.42 Cataract extraction status, left eye; Z85.3 Personal history of malignant neoplasm of breast; Z90.13 Acquired absence of bilateral breasts and nipples; Z79.82 Long term (current) use of aspirin; Z88.0 Allergy status to penicillin; Z88.2 Allergy status to sulfonamides; Z96.651 Presence of right artificial knee joint; F32.9 Major depressive disorder, single episode, unspecified; Z92.21 Personal history of antineoplastic chemotherapy

== ENCOUNTER 2020-04-17 09:13 | Outpatient (RCR) | payer MEDICARE, BC, OTHER | END 2020-04-19 | LOC: M PT 09:13 | PROVIDERS: ATTEND Orthopaedic Surgery | DX: Z47.89 Encounter for other orthopedic aftercare (principal); Z96.652 Presence of left artificial knee joint ==

== ENCOUNTER 2020-04-23 09:30 | Outpatient (RCR) | payer MEDICARE, BC, OTHER ==
[~2020-04-23 09:30] MED LIST changes: -LISI-538 PO; -LISI-542 PO; +LISI-898 PO; +LISI20TA33 PO
[2020-04-30] MEDS ORDERED: ECOT81TA5 PO (09:37)
[2020-04-30] MEDS ORDERED: GLIM2TAB4 PO (09:37)
[2020-04-30] MEDS ORDERED: CALC600T60 PO (09:37)
[2020-04-30] MEDS ORDERED: MULT-90 PO (09:37)
== END 2020-05-17 ==
LOC: M PT 09:30
PROVIDERS: ATTEND Orthopaedic Surgery
DX: Z47.89 Encounter for other orthopedic aftercare (principal); Z96.652 Presence of left artificial knee joint

== ENCOUNTER → 2020-05-11 | Outpatient (CLI) | payer MEDICARE, BC, OTHER ==
[~2020-05-11] MED LIST changes: +CALC600T60 PO; +MULT-90 PO; +PROHANCE 279.3MG/ML 15ML VIAL As Ordered ONE; +PROHANCE 279.3MG/ML 5ML VIAL As Ordered ONE
--- NOTE | 2020-05-11 15:51 | REP ---
INDICATION: SCREENING FOR PANCREATIC CANCER. Patient has a history of breast carcinoma. Genetic mutation. COMPARISON: Comparison is made with CT images from [address] study from December 24, 2014 is also reviewed. TECHNIQUE: Axial and coronal T1 and T2 weighted scans include spin echo, fast spin echo, in and out of phase, and dynamically acquired sequential postcontrast images. Gadolinium enhancement dose is 20 mL of intravenous ProHance. FINDINGS: The liver and the spleen are normal in size. No focal liver or splenic lesion is seen. Normal adrenal glands are seen bilaterally. Kidneys enhance symmetrically and are morphologically intact. There is no evidence of ascites. The gallbladder is surgically absent. There is a low T1 low T2 signal intensity nonenhancing lesion in the omental fat measuring 2.6 cm in greatest diameter. This is felt to correspond with the peripherally calcified cystic lesion seen in this location by CT study in 2014. It is unchanged and felt to have a benign appearance. No other mesenteric or omental finding is seen. There is no evidence of bile duct or pancreatic duct dilation. The common bile duct post cholecystectomy measures 6 mm in greatest diameter. There is signal dropout in the liver diffusely on the out of phase images consistent with fatty infiltration in the liver. This is mild. T2 weighted scans demonstrate a small focal cyst in the pancreatic tail. This measures 7.5 mm in greatest diameter. There is no associated or abnormal contrast enhancement. This does not appear to communicate with the pancreatic duct on coronal T2 weighted scans but rather to lie just beneath it. No other pancreatic cyst is appreciated. No pancreatic mass or area of increased or decreased contrast enhancement is seen. IMPRESSION: No evidence of pancreatic neoplasm. There is a 7.5 mm cyst in the tail of the pancreas. There is evidence of fatty infiltration of the liver. Post cholecystectomy. <Electronically signed by Jose Franks > 05/11/20 [id number]
== END ==
LOC: M RAD 08:46
PROVIDERS: ATTEND Internal Medicine Medical Oncology
DX: Z12.11 Encounter for screening for malignant neoplasm of colon (principal); K76.0 Fatty (change of) liver, not elsewhere classified; K86.2 Cyst of pancreas; Z85.3 Personal history of malignant neoplasm of breast
CPT/HCPCS: 74183; A9576

== ENCOUNTER → 2020-06-08 | Outpatient (CLI) | payer MEDICARE, BC, OTHER ==
[~2020-06-08] MED LIST changes: -PROHANCE 279.3MG/ML 15ML VIAL As Ordered ONE; -PROHANCE 279.3MG/ML 5ML VIAL As Ordered ONE
[2020-06-08 08:05] LABS: BASO # 0.1 10^3/uL (0.0-0.2); BASO % 0.9 % (0.0-1.0); EOS # 0.2 10^3/uL (0.0-0.5); EOS % 2.8 % (0.0-3.0); HEMATOCRIT 42.5 % (36.0-47.0); HEMOGLOBIN 13.7 g/dl (12.0-15.5); LYMPH # 2.3 10^3/uL (1.5-5.0); LYMPH % 33.5 % (24.0-44.0); MEAN CORPUSCULAR HEMOGLOBIN 28.5 pg (27.0-33.0); MEAN CORPUSCULAR HGB CONC 32.2 g/dl (32.0-36.5); MEAN CORPUSCULAR VOLUME 88.4 fl (80.0-96.0); MONO # 0.4 10^3/uL (0.0-0.8); MONO % 6.3 % (2.0-8.0); NEUTROPHILS # 3.8 10^3/uL (1.5-8.5); NEUTROPHILS % 56.2 % (36.0-66.0); PLATELET COUNT, AUTOMATED 229 10^3/uL (150-450); RED BLOOD COUNT 4.81 10^6/uL (4.00-5.40); WHITE BLOOD COUNT 6.7 10^3/uL (4.0-10.0)
[2020-06-08 08:31] LABS: HEMOGLOBIN A1c 6.5 %
[2020-06-08 08:38] LABS: ALBUMIN 3.9 GM/DL (3.2-5.2); ALT/SGPT 27 U/L (12-78); BILIRUBIN,TOTAL 0.3 MG/DL (0.2-1.0); BLOOD UREA NITROGEN 11 MG/DL (7-18); CALCIUM LEVEL 9.3 MG/DL (8.8-10.2); CARBON DIOXIDE LEVEL 31 MEQ/L (21-32); CHLORIDE LEVEL 103 MEQ/L (98-107); CHOLESTEROL LEVEL 116 MG/DL (<200); CHOLESTEROL RISK RATIO 2.274 (<5); FREE T4 1.18 NG/DL (0.76-1.46); GLOMERULAR FILTRATION RATE > 60.0 (>45); GLUCOSE, FASTING 165 MG/DL (70-100); HDL CHOLESTEROL 51 MG/DL (>40); LDL CHOLESTEROL 39 MG/DL (<100); NON-HDL-C 65 MG/DL; POTASSIUM SERUM 4.4 MEQ/L (3.5-5.1); SODIUM LEVEL 138 MEQ/L (136-145); TOTAL PROTEIN 7.9 GM/DL (6.4-8.2); TRIGLYCERIDES LEVEL 129 MG/DL (<150)
== END ==
LOC: M LAB 07:29
PROVIDERS: ATTEND Family Medicine
DX: E11.9 Type 2 diabetes mellitus without complications (principal); E89.0 Postprocedural hypothyroidism

== ENCOUNTER → 2020-08-24 | Outpatient (CLI) | payer MEDICARE, BC, OTHER ==
[2020-08-24 08:48] LABS: BASO # 0.1 10^3/uL (0.0-0.2); BASO % 1.3 % (0.0-1.0); EOS # 0.2 10^3/uL (0.0-0.5); EOS % 3.5 % (0.0-3.0); HEMATOCRIT 41.8 % (36.0-47.0); HEMOGLOBIN 13.4 g/dl (12.0-15.5); LYMPH # 1.7 10^3/uL (1.5-5.0); LYMPH % 27.3 % (24.0-44.0); MEAN CORPUSCULAR HEMOGLOBIN 28.2 pg (27.0-33.0); MEAN CORPUSCULAR HGB CONC 32.1 g/dl (32.0-36.5); MONO # 0.5 10^3/uL (0.0-0.8); MONO % 7.2 % (2.0-8.0); NEUTROPHILS # 3.8 10^3/uL (1.5-8.5); NEUTROPHILS % 60.4 % (36.0-66.0); PLATELET COUNT, AUTOMATED 203 10^3/uL (150-450); RED BLOOD COUNT 4.75 10^6/uL (4.00-5.40); WHITE BLOOD COUNT 6.3 10^3/uL (4.0-10.0)
[2020-08-24 09:21] LABS: HEMOGLOBIN A1c 6.4 %
[2020-08-24 09:31] LABS: ALT/SGPT 38 U/L (12-78); BILIRUBIN,TOTAL 0.5 MG/DL (0.2-1.0); BLOOD UREA NITROGEN 12 MG/DL (7-18); CALCIUM LEVEL 9.8 MG/DL (8.8-10.2); CARBON DIOXIDE LEVEL 30 MEQ/L (21-32); CHLORIDE LEVEL 102 MEQ/L (98-107); CREATININE FOR GFR 0.91 MG/DL (0.55-1.30); FREE T4 1.35 NG/DL (0.76-1.46); GLOMERULAR FILTRATION RATE > 60.0 (>45); GLUCOSE, FASTING 156 MG/DL (70-100); POTASSIUM SERUM 4.6 MEQ/L (3.5-5.1); SODIUM LEVEL 137 MEQ/L (136-145); TOTAL PROTEIN 8.1 GM/DL (6.4-8.2)
[2020-08-24 09:32] LABS: CREATININE, URINE 76.7 MG/DL; MAU/CREAT RATIO 37.8 MCG/MG (0.0-30.0)
== END ==
LOC: M LAB 07:51
PROVIDERS: ATTEND Family Medicine
DX: E11.9 Type 2 diabetes mellitus without complications (principal); E89.0 Postprocedural hypothyroidism

== ENCOUNTER → 2020-12-19 | Outpatient (CLI) | payer MEDICARE, BC, OTHER ==
[~2020-12-19] MED LIST changes: +VITAD400CA PO
[2020-12-19 10:48] LABS: HEMOGLOBIN A1c 6.6 %
[2020-12-19 11:00] LABS: ALT/SGPT 38 U/L (12-78); BILIRUBIN,TOTAL 0.6 MG/DL (0.2-1.0); BLOOD UREA NITROGEN 13 MG/DL (7-18); CALCIUM LEVEL 9.8 MG/DL (8.8-10.2); CARBON DIOXIDE LEVEL 30 MEQ/L (21-32); CHLORIDE LEVEL 103 MEQ/L (98-107); CREATININE FOR GFR 0.86 MG/DL (0.55-1.30); GLOMERULAR FILTRATION RATE > 60.0 (>45); GLUCOSE, FASTING 172 MG/DL (70-100); POTASSIUM SERUM 4.5 MEQ/L (3.5-5.1); SODIUM LEVEL 137 MEQ/L (136-145); TOTAL PROTEIN 7.8 GM/DL (6.4-8.2)
[2020-12-19 11:01] LABS: ALBUMIN 3.8 GM/DL (3.2-5.2)
[2020-12-21 10:50] LABS: HIV 1&2 SCREEN CENTAUR NEGATIVE (NEGATIVE)
== END ==
LOC: M LAB 08:11
PROVIDERS: ATTEND Family Medicine
DX: E11.9 Type 2 diabetes mellitus without complications (principal); Z11.3 Encounter for screening for infections with a predominantly sexual mode of transmission
CPT/HCPCS: 36415; 80053; 83036; 87389; G0472

== ENCOUNTER → 2021-03-19 | Outpatient (CLI) | payer MEDICARE, BC, OTHER ==
[2021-03-19 09:47] LABS: ALBUMIN 4.1 GM/DL (3.2-5.2); ALT/SGPT 43 U/L (12-78); BILIRUBIN,TOTAL 0.6 MG/DL (0.2-1.0); BLOOD UREA NITROGEN 14 MG/DL (7-18); CALCIUM LEVEL 9.5 MG/DL (8.8-10.2); CARBON DIOXIDE LEVEL 30 MEQ/L (21-32); CHLORIDE LEVEL 103 MEQ/L (98-107); CHOLESTEROL LEVEL 120 MG/DL (<200); CHOLESTEROL RISK RATIO 2.666 (<5); CREATININE FOR GFR 0.97 MG/DL (0.55-1.30); FREE T4 1.32 NG/DL (0.76-1.46); GLOMERULAR FILTRATION RATE > 60.0 (>45); GLUCOSE, FASTING 180 MG/DL (70-100); HDL CHOLESTEROL 45 MG/DL (>40); LDL CHOLESTEROL 41 MG/DL (<100); NON-HDL-C 75 MG/DL; POTASSIUM SERUM 4.7 MEQ/L (3.5-5.1); SODIUM LEVEL 138 MEQ/L (136-145); TOTAL PROTEIN 8.3 GM/DL (6.4-8.2); TRIGLYCERIDES LEVEL 171 MG/DL (<150)
[2021-03-19 10:20] LABS: HEMOGLOBIN A1c 6.6 %
== END ==
LOC: M LAB 08:39
PROVIDERS: ATTEND Family Medicine
DX: E11.9 Type 2 diabetes mellitus without complications (principal); E89.0 Postprocedural hypothyroidism; E78.00 Pure hypercholesterolemia, unspecified

== ENCOUNTER → 2021-05-03 | Outpatient (CLI) | payer MEDICARE, BC, OTHER ==
[~2021-05-03] MED LIST changes: -LISI-898 PO; +LISI5TAB11 PO
== END ==
LOC: M WHC 12:42
PROVIDERS: ATTEND Internal Medicine Hematology & Oncology
DX: C50.919 Malignant neoplasm of unspecified site of unspecified female breast (principal); M85.851 Other specified disorders of bone density and structure, right thigh; M85.852 Other specified disorders of bone density and structure, left thigh

== ENCOUNTER → 2021-06-24 | Outpatient (CLI) | payer MEDICARE, BC, OTHER ==
[2021-06-24 09:15] LABS: BASO # 0.1 10^3/uL (0.0-0.2); BASO % 1.1 % (0.0-1.0); EOS # 0.2 10^3/uL (0.0-0.5); EOS % 3.1 % (0.0-3.0); LYMPH # 1.5 10^3/uL (1.5-5.0); LYMPH % 24.3 % (24.0-44.0); MEAN CORPUSCULAR HGB CONC 32.6 g/dl (32.0-36.5); MONO # 0.5 10^3/uL (0.0-0.8); MONO % 7.4 % (2.0-8.0); NEUTROPHILS # 4.1 10^3/uL (1.5-8.5); NEUTROPHILS % 63.9 % (36.0-66.0); PLATELET COUNT, AUTOMATED 208 10^3/uL (150-450); RED BLOOD COUNT 4.83 10^6/uL (4.00-5.40); WHITE BLOOD COUNT 6.4 10^3/uL (4.0-10.0)
[2021-06-24 09:31] LABS: HEMOGLOBIN A1c 6.8 %
[2021-06-24 09:55] LABS: MALB URINE SIEMENS < 5.0 MG/L; MAU/CREAT RATIO 8.6 MCG/MG (0.0-30.0)
[2021-06-24 09:56] LABS: ALT/SGPT 38 U/L (12-78); BILIRUBIN,TOTAL 0.7 MG/DL (0.2-1.0); BLOOD UREA NITROGEN 12 MG/DL (7-18); CALCIUM LEVEL 9.3 MG/DL (8.8-10.2); CARBON DIOXIDE LEVEL 27 MEQ/L (21-32); CHLORIDE LEVEL 102 MEQ/L (98-107); CHOLESTEROL LEVEL 112 MG/DL (<200); CHOLESTEROL RISK RATIO 2.488 (<5); GLOMERULAR FILTRATION RATE > 60.0 (>45); GLUCOSE, FASTING 188 MG/DL (70-100); HDL CHOLESTEROL 45 MG/DL (>40); LDL CHOLESTEROL 36 MG/DL (<100); NON-HDL-C 67 MG/DL; POTASSIUM SERUM 4.6 MEQ/L (3.5-5.1); SODIUM LEVEL 137 MEQ/L (136-145); TRIGLYCERIDES LEVEL 156 MG/DL (<150)
== END ==
LOC: M LAB 07:48
PROVIDERS: ATTEND Nurse Practitioner Adult Health
DX: E11.9 Type 2 diabetes mellitus without complications (principal)

== ENCOUNTER → 2021-09-17 | Outpatient (CLI) | payer MEDICARE, BC, OTHER ==
[~2021-09-17] MED LIST changes: +B-12100010 PO; +CALCCHW4 PO; +FLAX1CAP5 PO; +GLIM2TAB29 PO; +MV M PO; +PROL60SO SC; +SERT50TA29 PO; +VITA100054 PO; +XGEVINJ SC
[2021-09-17 08:16] LABS: BASO # 0.1 10^3/uL (0.0-0.2); BASO % 0.7 % (0.0-1.0); EOS # 0.2 10^3/uL (0.0-0.5); HEMATOCRIT 42.4 % (36.0-47.0); HEMOGLOBIN 14.1 g/dl (12.0-15.5); LYMPH # 1.8 10^3/uL (1.5-5.0); LYMPH % 20.8 % (24.0-44.0); MEAN CORPUSCULAR HEMOGLOBIN 29.4 pg (27.0-33.0); MEAN CORPUSCULAR HGB CONC 33.3 g/dl (32.0-36.5); MEAN CORPUSCULAR VOLUME 88.5 fl (80.0-96.0); MONO # 0.6 10^3/uL (0.0-0.8); MONO % 6.6 % (2.0-8.0); NEUTROPHILS % 69.7 % (36.0-66.0); PLATELET COUNT, AUTOMATED 224 10^3/uL (150-450); RED BLOOD COUNT 4.79 10^6/uL (4.00-5.40); WHITE BLOOD COUNT 8.5 10^3/uL (4.0-10.0)
[2021-09-17 08:41] LABS: HEMOGLOBIN A1c 6.8 %
[2021-09-17 08:45] LABS: ALBUMIN 3.8 GM/DL (3.2-5.2); BILIRUBIN,TOTAL 0.5 MG/DL (0.2-1.0); CALCIUM LEVEL 9.8 MG/DL (8.8-10.2); CHOLESTEROL RISK RATIO 2.265 (<5); FREE T4 1.31 NG/DL (0.76-1.46); GLOMERULAR FILTRATION RATE 59.1 (>45); POTASSIUM SERUM 4.8 MEQ/L (3.5-5.1); THYROID STIMULATING HORMONE 5.3 uIU/ML (0.358-3.740); TOTAL PROTEIN 8.3 GM/DL (6.4-8.2)
== END ==
LOC: M LAB 07:37
PROVIDERS: ATTEND Family Medicine
DX: E11.40 Type 2 diabetes mellitus with diabetic neuropathy, unspecified (principal)

== ENCOUNTER 2021-10-06 11:45 | Day surgery (SDC) | payer MEDICARE, BC, OTHER ==
[~2021-10-06] VITALS: Ht 170.2 cm; Wt 100.2 kg
[~2021-10-06 11:45] MED LIST changes: +LIDOCAINE 2% 100MG/5ML SDV (FOR ANES.) As Ordered ONE; +NS 1,000 ML IV ONE; +propofoL 200 MG/20 ML VIAL As Ordered ONE
[2021-10-06 13:47] VITALS: BP 94/50
== END 2021-10-06 13:46 | disposition home or self-care (01) ==
LOC: M OPP 11:45
PROVIDERS: ATTEND Internal Medicine Gastroenterology
DX: Z12.11 Encounter for screening for malignant neoplasm of colon (principal); Z86.010 Personal history of colon polyps; K57.30 Diverticulosis of large intestine without perforation or abscess without bleeding; K64.0 First degree hemorrhoids; E11.9 Type 2 diabetes mellitus without complications; G47.33 Obstructive sleep apnea (adult) (pediatric); I48.91 Unspecified atrial fibrillation; E03.9 Hypothyroidism, unspecified; Z79.02 Long term (current) use of antithrombotics/antiplatelets; Z79.52 Long term (current) use of systemic steroids; Z79.82 Long term (current) use of aspirin; Z79.84 Long term (current) use of oral hypoglycemic drugs; Z79.899 Other long term (current) drug therapy; Z88.0 Allergy status to penicillin; Z88.2 Allergy status to sulfonamides; Z87.891 Personal history of nicotine dependence

== ENCOUNTER → 2021-11-15 | Outpatient (CLI) | payer MEDICARE, BC, OTHER ==
[~2021-11-15] MED LIST changes: -LIDOCAINE 2% 100MG/5ML SDV (FOR ANES.) As Ordered ONE; -NS 1,000 ML IV ONE; -propofoL 200 MG/20 ML VIAL As Ordered ONE
[2021-11-15 13:36] LABS: FREE T4 1.07 NG/DL (0.76-1.46); THYROID STIMULATING HORMONE 7.02 uIU/ML (0.358-3.740)
== END ==
LOC: M LAB 12:16
PROVIDERS: ATTEND Nurse Practitioner Adult Health
DX: E89.0 Postprocedural hypothyroidism (principal)

== ENCOUNTER → 2021-12-24 | Outpatient (CLI) | payer MEDICARE, BC, OTHER ==
[~2021-12-24] MED LIST changes: +LEVO150T7
[2021-12-24 09:16] LABS: BASO # 0.1 10^3/uL (0.0-0.2); EOS # 0.2 10^3/uL (0.0-0.5); EOS % 2.9 % (0.0-3.0); HEMATOCRIT 42.9 % (36.0-47.0); HEMOGLOBIN 13.7 g/dl (12.0-15.5); LYMPH # 1.8 10^3/uL (1.5-5.0); LYMPH % 27.8 % (24.0-44.0); MEAN CORPUSCULAR HGB CONC 31.9 g/dl (32.0-36.5); MEAN CORPUSCULAR VOLUME 90.9 fl (80.0-96.0); MONO # 0.5 10^3/uL (0.0-0.8); MONO % 7.3 % (2.0-8.0); NEUTROPHILS # 3.8 10^3/uL (1.5-8.5); NEUTROPHILS % 60.7 % (36.0-66.0); PLATELET COUNT, AUTOMATED 180 10^3/uL (150-450); RED BLOOD COUNT 4.72 10^6/uL (4.00-5.40); WHITE BLOOD COUNT 6.3 10^3/uL (4.0-10.0)
[2021-12-24 09:39] LABS: HEMOGLOBIN A1c 6.9 %
[2021-12-24 09:56] LABS: ALBUMIN 3.7 GM/DL (3.2-5.2); ALT/SGPT 44 U/L (12-78); BILIRUBIN,TOTAL 0.4 MG/DL (0.2-1.0); BLOOD UREA NITROGEN 17 MG/DL (7-18); CALCIUM LEVEL 9.4 MG/DL (8.8-10.2); CARBON DIOXIDE LEVEL 27 MEQ/L (21-32); CHLORIDE LEVEL 102 MEQ/L (98-107); CHOLESTEROL LEVEL 115 MG/DL (<200); CHOLESTEROL RISK RATIO 2.446 (<5); CREATININE FOR GFR 0.89 MG/DL (0.55-1.30); FREE T4 1.43 NG/DL (0.76-1.46); GLOMERULAR FILTRATION RATE > 60.0 (>45); GLUCOSE, FASTING 189 MG/DL (70-100); HDL CHOLESTEROL 47 MG/DL (>40); LDL CHOLESTEROL 46 MG/DL (<100); NON-HDL-C 68 MG/DL; POTASSIUM SERUM 4.7 MEQ/L (3.5-5.1); SODIUM LEVEL 136 MEQ/L (136-145); TRIGLYCERIDES LEVEL 109 MG/DL (<150)
[2021-12-24 10:02] LABS: CREATININE, URINE 50.6 MG/DL; MALB URINE SIEMENS 7.6 MG/L
[2021-12-24 12:33] LABS: TOTAL 25(OH) VITAMIN D 37.2 NG/ML (30.0-100.0)
== END ==
LOC: M LAB 08:26
PROVIDERS: ATTEND Nurse Practitioner Adult Health
DX: E11.40 Type 2 diabetes mellitus with diabetic neuropathy, unspecified (principal)

== ENCOUNTER → 2022-03-28 | Outpatient (CLI) | payer MEDICARE, BC, OTHER ==
[2022-03-28 09:21] LABS: BASO # 0.1 10^3/uL (0.0-0.2); EOS # 0.2 10^3/uL (0.0-0.5); EOS % 3.4 % (0.0-3.0); HEMATOCRIT 41.8 % (36.0-47.0); HEMOGLOBIN 13.7 g/dl (12.0-15.5); LYMPH # 1.5 10^3/uL (1.5-5.0); LYMPH % 26.6 % (24.0-44.0); MEAN CORPUSCULAR HGB CONC 32.8 g/dl (32.0-36.5); MEAN CORPUSCULAR VOLUME 88.6 fl (80.0-96.0); MONO # 0.4 10^3/uL (0.0-0.8); MONO % 6.6 % (2.0-8.0); NEUTROPHILS # 3.6 10^3/uL (1.5-8.5); NEUTROPHILS % 62.2 % (36.0-66.0); PLATELET COUNT, AUTOMATED 206 10^3/uL (150-450); RED BLOOD COUNT 4.72 10^6/uL (4.00-5.40); WHITE BLOOD COUNT 5.8 10^3/uL (4.0-10.0)
[2022-03-28 09:51] LABS: ALBUMIN 3.9 G/DL (3.2-5.2); ALKALINE PHOSPHATASE 78 U/L (46-116); ALT/SGPT 45 U/L (7.0-40); AST/SGOT 26 U/L (<34); BILIRUBIN,TOTAL 0.5 MG/DL (0.3-1.2); BLOOD UREA NITROGEN 11 MG/DL (9-23); CALCIUM LEVEL 9.8 MG/DL (8.3-10.6); CARBON DIOXIDE LEVEL 30 MMOL/L (20-31); CHLORIDE LEVEL 102 MMOL/L (98-107); CREATININE FOR GFR 0.72 MG/DL (0.55-1.30); GLOMERULAR FILTRATION RATE > 60.0 (>45); GLUCOSE, FASTING 177 MG/DL (74-106); POTASSIUM SERUM 4.3 MMOL/L (3.5-5.1); SODIUM LEVEL 139 MMOL/L (136-145); TOTAL PROTEIN 7.7 G/DL (5.7-8.2)
[2022-03-28 09:52] LABS: FREE T4 1.55 NG/DL (0.89-1.76); THYROID STIMULATING HORMONE 0.536 uIU/ML (0.55-4.78)
[2022-03-28 10:19] LABS: HEMOGLOBIN A1c 6.8 % (4.0-6.0)
== END ==
LOC: M LAB 08:23
PROVIDERS: ATTEND Nurse Practitioner Adult Health
DX: E11.40 Type 2 diabetes mellitus with diabetic neuropathy, unspecified (principal); E89.0 Postprocedural hypothyroidism

== ENCOUNTER → 2022-04-05 | Outpatient (CLI) | payer MEDICARE, BC, OTHER | LOC: M SOG 07:53 | PROVIDERS: ATTEND Orthopaedic Surgery Hand Surgery | DX: M18.12 Unilateral primary osteoarthritis of first carpometacarpal joint, left hand (principal) ==

== ENCOUNTER → 2022-06-21 | Outpatient (CLI) | payer MEDICARE, BC, OTHER ==
[2022-06-21 08:10] LABS: BASO # 0.1 10^3/uL (0.0-0.2); EOS # 0.3 10^3/uL (0.0-0.5); EOS % 4.1 % (0.0-3.0); HEMATOCRIT 40.7 % (36.0-47.0); HEMOGLOBIN 13.4 g/dl (12.0-15.5); LYMPH # 1.9 10^3/uL (1.5-5.0); LYMPH % 31.4 % (24.0-44.0); MEAN CORPUSCULAR HEMOGLOBIN 29.1 pg (27.0-33.0); MEAN CORPUSCULAR HGB CONC 32.9 g/dl (32.0-36.5); MEAN CORPUSCULAR VOLUME 88.3 fl (80.0-96.0); MONO # 0.4 10^3/uL (0.0-0.8); MONO % 7.1 % (2.0-8.0); NEUTROPHILS # 3.4 10^3/uL (1.5-8.5); NEUTROPHILS % 56.2 % (36.0-66.0); PLATELET COUNT, AUTOMATED 185 10^3/uL (150-450); RED BLOOD COUNT 4.61 10^6/uL (4.00-5.40); WHITE BLOOD COUNT 6.1 10^3/uL (4.0-10.0)
[2022-06-21 08:44] LABS: CREATININE, URINE 88.4 MG/DL
[2022-06-21 08:45] LABS: MAU/CREAT RATIO 5.6 MCG/MG (0.0-30.0)
[2022-06-21 08:52] LABS: ALBUMIN 3.8 G/DL (3.2-5.2); ALKALINE PHOSPHATASE 79 U/L (46-116); ALT/SGPT 29 U/L (7.0-40); AST/SGOT 18 U/L (<34); BILIRUBIN,TOTAL 0.4 MG/DL (0.3-1.2); BLOOD UREA NITROGEN 13 MG/DL (9-23); CALCIUM LEVEL 9.2 MG/DL (8.3-10.6); CARBON DIOXIDE LEVEL 29 MMOL/L (20-31); CHLORIDE LEVEL 105 MMOL/L (98-107); CHOLESTEROL LEVEL 109 MG/DL (<200); CREATININE FOR GFR 0.76 MG/DL (0.55-1.30); FREE T4 1.43 NG/DL (0.89-1.76); GLOMERULAR FILTRATION RATE > 60.0 (>45); GLUCOSE, FASTING 173 MG/DL (74-106); HDL CHOLESTEROL 41.9 MG/DL (>40); LDL CHOLESTEROL 41.9 MG/DL (<100); NON-HDL-C 67.1 MG/DL; POTASSIUM SERUM 4.6 MMOL/L (3.5-5.1); SODIUM LEVEL 134 MMOL/L (136-145); THYROID STIMULATING HORMONE 1.345 uIU/ML (0.55-4.78); TOTAL PROTEIN 7.4 G/DL (5.7-8.2); TRIGLYCERIDES LEVEL 126 MG/DL (<150)
[2022-06-21 10:54] LABS: HEMOGLOBIN A1c 7.1 % (4.0-6.0)
== END ==
LOC: M LAB 07:14
PROVIDERS: ATTEND Family Medicine
DX: E11.40 Type 2 diabetes mellitus with diabetic neuropathy, unspecified (principal); E78.00 Pure hypercholesterolemia, unspecified

== ENCOUNTER → 2022-09-26 | Outpatient (CLI) | payer MEDICARE, BC, OTHER ==
[~2022-09-26] MED LIST changes: +NYST100085 TOP; -NYSTOI TOP
[2022-09-26 08:54] LABS: BASO # 0.1 10^3/uL (0.0-0.2); BASO % 1.3 % (0.0-1.0); EOS # 0.3 10^3/uL (0.0-0.5); EOS % 4.1 % (0.0-3.0); HEMOGLOBIN 13.9 g/dl (12.0-15.5); LYMPH % 31.9 % (24.0-44.0); MEAN CORPUSCULAR HEMOGLOBIN 28.8 pg (27.0-33.0); MEAN CORPUSCULAR HGB CONC 32.3 g/dl (32.0-36.5); MONO # 0.4 10^3/uL (0.0-0.8); NEUTROPHILS # 3.6 10^3/uL (1.5-8.5); NEUTROPHILS % 56.4 % (36.0-66.0); PLATELET COUNT, AUTOMATED 183 10^3/uL (150-450); RED BLOOD COUNT 4.83 10^6/uL (4.00-5.40); WHITE BLOOD COUNT 6.3 10^3/uL (4.0-10.0)
[2022-09-26 09:08] LABS: ALBUMIN 3.8 G/DL (3.2-5.2); ALKALINE PHOSPHATASE 78 U/L (46-116); ALT/SGPT 32 U/L (7.0-40); AST/SGOT 13 U/L (<34); BILIRUBIN,TOTAL 0.5 MG/DL (0.3-1.2); BLOOD UREA NITROGEN 12 MG/DL (9-23); CALCIUM LEVEL 8.8 MG/DL (8.3-10.6); CARBON DIOXIDE LEVEL 27 MMOL/L (20-31); CHLORIDE LEVEL 103 MMOL/L (98-107); CREATININE FOR GFR 0.65 MG/DL (0.55-1.30); GLOMERULAR FILTRATION RATE > 60.0 (>45); GLUCOSE, FASTING 191 MG/DL (74-106); POTASSIUM SERUM 4.4 MMOL/L (3.5-5.1); SODIUM LEVEL 137 MMOL/L (136-145); TOTAL PROTEIN 7.8 G/DL (5.7-8.2)
[2022-09-26 09:59] LABS: HEMOGLOBIN A1c 7.2 % (4.0-6.0)
== END ==
LOC: M LAB 07:43
PROVIDERS: ATTEND Nurse Practitioner Adult Health
DX: E11.40 Type 2 diabetes mellitus with diabetic neuropathy, unspecified (principal)

== ENCOUNTER → 2022-12-07 | Outpatient (CLI) | payer MEDICARE, BC, OTHER ==
[~2022-12-07] MED LIST changes: +ELDE350C PO; +PROHANCE 279.3MG/ML 15ML VIAL As Ordered ONE; +PROHANCE 279.3MG/ML 5ML VIAL As Ordered ONE
== END ==
LOC: M RAD 07:56
PROVIDERS: ATTEND Internal Medicine Medical Oncology
DX: K76.0 Fatty (change of) liver, not elsewhere classified (principal); Z90.49 Acquired absence of other specified parts of digestive tract; K86.2 Cyst of pancreas; K86.89 Other specified diseases of pancreas; Z85.3 Personal history of malignant neoplasm of breast
CPT/HCPCS: 74183; A9576

== ENCOUNTER → 2022-12-21 | Outpatient (CLI) | payer MEDICARE, BC, OTHER ==
[~2022-12-21] MED LIST changes: -LEVO150T7; -PROHANCE 279.3MG/ML 15ML VIAL As Ordered ONE; -PROHANCE 279.3MG/ML 5ML VIAL As Ordered ONE
[2022-12-21 08:47] LABS: BASO # 0.1 10^3/uL (0.0-0.2); BASO % 1.4 % (0.0-1.0); EOS # 0.2 10^3/uL (0.0-0.5); EOS % 4.1 % (0.0-3.0); HEMATOCRIT 42.6 % (36.0-47.0); HEMOGLOBIN 14.3 g/dl (12.0-15.5); LYMPH # 1.8 10^3/uL (1.5-5.0); LYMPH % 30.2 % (24.0-44.0); MEAN CORPUSCULAR HEMOGLOBIN 29.9 pg (27.0-33.0); MEAN CORPUSCULAR HGB CONC 33.6 g/dl (32.0-36.5); MEAN CORPUSCULAR VOLUME 89.1 fl (80.0-96.0); MONO # 0.4 10^3/uL (0.0-0.8); MONO % 6.9 % (2.0-8.0); NEUTROPHILS # 3.4 10^3/uL (1.5-8.5); NEUTROPHILS % 57.2 % (36.0-66.0); PLATELET COUNT, AUTOMATED 198 10^3/uL (150-450); RED BLOOD COUNT 4.78 10^6/uL (4.00-5.40); WHITE BLOOD COUNT 5.9 10^3/uL (4.0-10.0)
[2022-12-21 09:17] LABS: ALKALINE PHOSPHATASE 85 U/L (46-116); ALT/SGPT 47 U/L (7.0-40); AST/SGOT 21 U/L (<34); BILIRUBIN,TOTAL 0.5 MG/DL (0.3-1.2); BLOOD UREA NITROGEN 12 MG/DL (9-23); CALCIUM LEVEL 10.1 MG/DL (8.3-10.6); CARBON DIOXIDE LEVEL 29 MMOL/L (20-31); CHLORIDE LEVEL 103 MMOL/L (98-107); CHOLESTEROL LEVEL 111 MG/DL (<200); CHOLESTEROL RISK RATIO 2.55 (<5); CREATININE FOR GFR 0.84 MG/DL (0.55-1.30); GLOMERULAR FILTRATION RATE > 60.0 (>45); GLUCOSE, FASTING 296 MG/DL (74-106); HDL CHOLESTEROL 43.5 MG/DL (>40); LDL CHOLESTEROL 40.9 MG/DL (<100); NON-HDL-C 67.5 MG/DL; POTASSIUM SERUM 4.9 MMOL/L (3.5-5.1); SODIUM LEVEL 138 MMOL/L (136-145); TOTAL PROTEIN 7.8 G/DL (5.7-8.2); TRIGLYCERIDES LEVEL 133 MG/DL (<150)
[2022-12-21 09:18] LABS: FREE T4 1.43 NG/DL (0.89-1.76); THYROID STIMULATING HORMONE 3.521 uIU/ML (0.55-4.78)
[2022-12-21 09:38] LABS: HEMOGLOBIN A1c 8.6 % (4.0-6.0)
== END ==
LOC: M LAB 07:49
PROVIDERS: ATTEND Nurse Practitioner Adult Health
DX: E11.40 Type 2 diabetes mellitus with diabetic neuropathy, unspecified (principal); E78.00 Pure hypercholesterolemia, unspecified; E89.0 Postprocedural hypothyroidism

== ENCOUNTER → 2023-03-29 | Outpatient (CLI) | payer MEDICARE, BC, OTHER ==
[2023-03-29 09:50] LABS: BASO # 0.1 10^3/uL (0.0-0.2); BASO % 1.2 % (0.0-1.0); EOS # 0.3 10^3/uL (0.0-0.5); HEMATOCRIT 42.7 % (36.0-47.0); HEMOGLOBIN 14.1 g/dl (12.0-15.5); LYMPH # 2.3 10^3/uL (1.5-5.0); LYMPH % 27.5 % (24.0-44.0); MEAN CORPUSCULAR HEMOGLOBIN 29.6 pg (27.0-33.0); MEAN CORPUSCULAR VOLUME 89.7 fl (80.0-96.0); MONO # 0.5 10^3/uL (0.0-0.8); MONO % 6.4 % (2.0-8.0); NEUTROPHILS # 5.1 10^3/uL (1.5-8.5); NEUTROPHILS % 61.7 % (36.0-66.0); PLATELET COUNT, AUTOMATED 212 10^3/uL (150-450); RED BLOOD COUNT 4.76 10^6/uL (4.00-5.40); WHITE BLOOD COUNT 8.3 10^3/uL (4.0-10.0)
[2023-03-29 10:18] LABS: ALBUMIN 3.9 G/DL (3.2-5.2); ALKALINE PHOSPHATASE 60 U/L (46-116); ALT/SGPT 37 U/L (7.0-40); AST/SGOT 18 U/L (<34); BILIRUBIN,TOTAL 0.5 MG/DL (0.3-1.2); BLOOD UREA NITROGEN 10 MG/DL (9-23); CALCIUM LEVEL 9.5 MG/DL (8.3-10.6); CARBON DIOXIDE LEVEL 29 MMOL/L (20-31); CHLORIDE LEVEL 104 MMOL/L (98-107); CREATININE FOR GFR 0.78 MG/DL (0.55-1.30); GLOMERULAR FILTRATION RATE > 60.0 (>45); GLUCOSE, FASTING 138 MG/DL (74-106); POTASSIUM SERUM 4.3 MMOL/L (3.5-5.1); SODIUM LEVEL 140 MMOL/L (136-145); TOTAL PROTEIN 7.5 G/DL (5.7-8.2)
== END ==
LOC: M LAB 09:05
PROVIDERS: ATTEND Nurse Practitioner Adult Health
DX: E11.40 Type 2 diabetes mellitus with diabetic neuropathy, unspecified (principal)

== ENCOUNTER → 2023-05-04 | Outpatient (CLI) | payer MEDICARE, BC, OTHER ==
[~2023-05-04] MED LIST changes: +ADV100INH INH; +OMEGCAP9 PO; +SEMA0.257
== END ==
LOC: M WHC 09:38
PROVIDERS: ATTEND Internal Medicine Medical Oncology
DX: C50.919 Malignant neoplasm of unspecified site of unspecified female breast (principal); Z79.811 Long term (current) use of aromatase inhibitors; M85.89 Other specified disorders of bone density and structure, multiple sites

== ENCOUNTER → 2023-06-26 | Outpatient (CLI) | payer MEDICARE, BC ==
[2023-06-26 08:20] LABS: BASO # 0.1 10^3/uL (0.0-0.2); BASO % 1.1 % (0.0-1.0); EOS # 0.2 10^3/uL (0.0-0.5); HEMATOCRIT 42.6 % (36.0-47.0); HEMOGLOBIN 14.2 g/dl (12.0-15.5); LYMPH # 1.8 10^3/uL (1.5-5.0); MEAN CORPUSCULAR HEMOGLOBIN 29.8 pg (27.0-33.0); MEAN CORPUSCULAR HGB CONC 33.3 g/dl (32.0-36.5); MEAN CORPUSCULAR VOLUME 89.3 fl (80.0-96.0); MONO # 0.4 10^3/uL (0.0-0.8); MONO % 6.9 % (2.0-8.0); NEUTROPHILS # 3.8 10^3/uL (1.5-8.5); NEUTROPHILS % 60.7 % (36.0-66.0); PLATELET COUNT, AUTOMATED 206 10^3/uL (150-450); RED BLOOD COUNT 4.77 10^6/uL (4.00-5.40); WHITE BLOOD COUNT 6.3 10^3/uL (4.0-10.0)
[2023-06-26 08:31] LABS: HEMOGLOBIN A1c 6.1 % (4.0-6.0)
[2023-06-26 08:44] LABS: MAU/CREAT RATIO 12.6 MCG/MG (0.0-30.0)
[2023-06-26 08:50] LABS: ALKALINE PHOSPHATASE 86 U/L (46-116); ALT/SGPT 23 U/L (7.0-40); AST/SGOT 13 U/L (<34); BILIRUBIN,TOTAL 0.6 MG/DL (0.3-1.2); BLOOD UREA NITROGEN 12 MG/DL (9-23); CALCIUM LEVEL 9.7 MG/DL (8.3-10.6); CARBON DIOXIDE LEVEL 30 MMOL/L (20-31); CHLORIDE LEVEL 104 MMOL/L (98-107); CHOLESTEROL LEVEL 116 MG/DL (<200); CHOLESTEROL RISK RATIO 2.65 (<5); CREATININE FOR GFR 0.77 MG/DL (0.55-1.30); GLOMERULAR FILTRATION RATE > 60.0 (>45); GLUCOSE, FASTING 159 MG/DL (74-106); HDL CHOLESTEROL 43.7 MG/DL (>40); LDL CHOLESTEROL 40.9 MG/DL (<100); NON-HDL-C 72.3 MG/DL; POTASSIUM SERUM 4.5 MMOL/L (3.5-5.1); SODIUM LEVEL 138 MMOL/L (136-145); TRIGLYCERIDES LEVEL 157 MG/DL (<150)
[2023-06-26 08:51] LABS: FREE T4 1.49 NG/DL (0.89-1.76); THYROID STIMULATING HORMONE 0.365 uIU/ML (0.55-4.78)
== END ==
LOC: M LAB 07:09
PROVIDERS: ATTEND Nurse Practitioner Adult Health
DX: E11.40 Type 2 diabetes mellitus with diabetic neuropathy, unspecified (principal)

== ENCOUNTER → 2023-09-25 | Outpatient (CLI) | payer MEDICARE, BC ==
[2023-09-25 08:36] LABS: BASO # 0.1 10^3/uL (0.0-0.2); BASO % 1.5 % (0.0-1.0); EOS # 0.2 10^3/uL (0.0-0.5); EOS % 3.8 % (0.0-3.0); HEMATOCRIT 41.6 % (36.0-47.0); HEMOGLOBIN 13.7 g/dl (12.0-15.5); LYMPH % 36.6 % (24.0-44.0); MEAN CORPUSCULAR HEMOGLOBIN 29.2 pg (27.0-33.0); MEAN CORPUSCULAR HGB CONC 32.9 g/dl (32.0-36.5); MEAN CORPUSCULAR VOLUME 88.7 fl (80.0-96.0); MONO # 0.5 10^3/uL (0.0-0.8); MONO % 8.8 % (2.0-8.0); NEUTROPHILS # 2.7 10^3/uL (1.5-8.5); NEUTROPHILS % 49.1 % (36.0-66.0); PLATELET COUNT, AUTOMATED 182 10^3/uL (150-450); RED BLOOD COUNT 4.69 10^6/uL (4.00-5.40); WHITE BLOOD COUNT 5.5 10^3/uL (4.0-10.0)
[2023-09-25 08:47] LABS: HEMOGLOBIN A1c 6.1 % (4.0-6.0)
[2023-09-25 09:06] LABS: ALBUMIN 3.8 G/DL (3.2-5.2); ALKALINE PHOSPHATASE 64 U/L (46-116); ALT/SGPT 20 U/L (7.0-40); AST/SGOT 9 U/L (<34); BILIRUBIN,TOTAL 0.5 MG/DL (0.3-1.2); BLOOD UREA NITROGEN 13 MG/DL (9-23); CALCIUM LEVEL 9.2 MG/DL (8.3-10.6); CARBON DIOXIDE LEVEL 30 MMOL/L (20-31); CHLORIDE LEVEL 104 MMOL/L (98-107); CHOLESTEROL LEVEL 110 MG/DL (<200); CHOLESTEROL RISK RATIO 2.58 (<5); GLOMERULAR FILTRATION RATE > 60.0 (>45); GLUCOSE, FASTING 144 MG/DL (74-106); HDL CHOLESTEROL 42.5 MG/DL (>40); LDL CHOLESTEROL 45.5 MG/DL (<100); NON-HDL-C 67.5 MG/DL; POTASSIUM SERUM 4.4 MMOL/L (3.5-5.1); SODIUM LEVEL 137 MMOL/L (136-145); TOTAL PROTEIN 7.5 G/DL (5.7-8.2); TRIGLYCERIDES LEVEL 110 MG/DL (<150)
[2023-09-25 09:08] LABS: FREE T4 1.35 NG/DL (0.89-1.76)
== END ==
LOC: M LAB 07:44
PROVIDERS: ATTEND Family Medicine
DX: E11.40 Type 2 diabetes mellitus with diabetic neuropathy, unspecified (principal); E78.00 Pure hypercholesterolemia, unspecified

== ENCOUNTER → 2024-05-10 | Outpatient (CLI) | payer MEDICARE, BC ==
[~2024-05-10] MED LIST changes: -ADV100INH INH; +ADVA1AER8 INH; +COLA100C5 PO
== END ==
LOC: M PLARAD 07:57
PROVIDERS: ATTEND Internal Medicine Medical Oncology
DX: Z15.09 Genetic susceptibility to other malignant neoplasm (principal); K86.2 Cyst of pancreas; Z90.49 Acquired absence of other specified parts of digestive tract